=== PATIENT | male | born 1955 | race Caucasian/White ===

== ENCOUNTER → 2024-06-05 | Outpatient (BNVA) | payer OTHER, SELFPAY | END | disposition home or self-care (01) | PROVIDERS: PCP Family Medicine; Referring Provider Family Medicine; Visit Provider Urology | DX: N40.1 Benign prostatic hyperplasia with lower urinary tract symptoms (principal); N13.8 Other obstructive and reflux uropathy; N32.3 Diverticulum of bladder; C67.9 Malignant neoplasm of bladder, unspecified; E11.9 Type 2 diabetes mellitus without complications; I10 Essential (primary) hypertension; J44.9 Chronic obstructive pulmonary disease, unspecified; Z87.891 Personal history of nicotine dependence; I48.91 Unspecified atrial fibrillation; I25.10 Atherosclerotic heart disease of native coronary artery without angina pectoris; E78.00 Pure hypercholesterolemia, unspecified; Z86.718 Personal history of other venous thrombosis and embolism; K21.9 Gastro-esophageal reflux disease without esophagitis | CPT/HCPCS: 81003; 99212; G0463 ==

== ENCOUNTER 2024-10-08 17:40 | Inpatient (IN) | payer OTHER, MEDICARE, SELFPAY ==
[2024-10-08] VITALS (9 sets, daily range): BP systolic 115–153; BP diastolic 82–114; PULSE 92–120; RESP 15–91; TEMP 36.8–37.2; O2SAT 91–96; BMI 28.8
--- NOTE | 2024-10-08 18:17 | XR_ITS ---
Examination: CT brain head without contrast. 2-D sagittal coronal reconstructions Date and time of exam:October 08, 2024 1858 hrs. Indications: Onset altered mental status today CTDI: vol (mGy):55.5 DLP: (mGycm):1227 4 Technique: Multiple CT axial sections of the brain have been obtained, 5 mm slice thickness. Contrast has not been administered. 2-D sagittal, coronal reconstructions have been obtained Low dose protocols were performed. One or more of the following dose reduction techniques were used; automated exposure control, adjustment of the mA and/or KV according to patient size, use of iterative reconstruction technique. Findings: No significant ventricular enlargement. Intra-axial or extra-axial hemorrhage density is not seen. No mass effect or midline shift Basal cisterns are not remarkable. Fourth ventricle is midline. Cranial vault intact. Impression: Negative for acute hemorrhage, mass effect or midline shift Advise clinical correlation follow-up accordingly
--- NOTE | 2024-10-08 18:19 | PD.EDADULT ---
ED General RME/HPI General Chief complaint: Altered Mental Status Stated complaint: ALERTED Time Seen by Provider: 10/08/24 18:06 Arrival date/time: 10/08/24 17:40 RME / HPI RME / HPI narrative: Patient is 68 years old male with past medical history of diabetes, hypertension, depression, BPH, COPD presented to the ED after he was found down at home. Per EMS patient lives alone and last time was seen normal more than 1 day ago. Patient cannot recall when he fell and appears altered. He denies any chest pain, shortness of breath, abdominal pain, fever, chills, nausea and vomiting. Daughter was contacted over the phone reporting patient's last well-known 1 to 2 days ago when she spoke over the phone with him, patient reported not feeling well several days prior to the event. She also reported he is drinking alcohol heavily. Related Data Home Medications ?Medication ?Instructions ?Recorded ?Confirmed finasteride 5 mg tablet (Proscar) 5 mg PO QDAY #0 tabs 11/01/16 06/05/24 albuterol sulfate 90 mcg/actuation 1 puff inhalation DAILY PRN 07/05/19 06/05/24 aerosol inhaler (ProAir HFA) Wheezing sertraline 100 mg tablet 200 mg PO QDAY 07/05/19 06/05/24 fluticasone fur. 100 mcg-umeclid 1 inh inhalation QDAY 12/11/19 06/05/24 62.5 mcg-vilant 25 mcg inhalat.powder (Trelegy Ellipta) aripiprazole 5 mg tablet (Abilify) 5 mg PO HS 08/09/23 06/05/24 benzonatate 200 mg capsule 200 mg PO Q8HR 08/09/23 06/05/24 fenofibrate micronized 200 mg 200 mg PO DAILY 08/09/23 06/05/24 capsule fluticasone propionate 50 1 spray intranasal DAILY 08/09/23 06/05/24 mcg/actuation nasal spray,suspension glipizide 5 mg tablet 5 mg PO QAM 08/09/23 06/05/24 hydroxyzine HCl 25 mg tablet 25 mg PO HS PRN Anxiety 08/09/23 06/05/24 loratadine 10 mg tablet 10 mg PO DAILY 08/09/23 06/05/24 tamsulosin 0.4 mg capsule (Flomax) 0.8 mg PO HS #0 caps 06/05/24 06/05/24 Allergies Allergy/AdvReac Type Severity Reaction Status Date / Time codeine Allergy Severe vomiting Verified 06/05/24 14:13 strawberry Allergy Severe Hives Verified 06/05/24 14:13 Bee Stings Allergy Severe ANAPHYLACTIC Uncoded 06/05/24 14:13 SHOCK Review of Systems Review of Systems Systems Reviewed: All systems reviewed, normal except as documented ED Exam Narrative Physical exam: Gen: Well-developed male appears malnourished. HEENT: NCAT, PERRLA, EOMI, MMM, anicteric conjunctivae, poor dentition. CVS: normal S1 and S2. RRR. No M/R/G. Resp: CTA B/L. No rhonchi, rales, crackles or wheezing. Abd: soft, non-tender, non-distended. BS+ in all 4 quadrants. MSK: Good ROM in BUE & BLE. No edema or rash. Right lower rib appears to be detached and located in RUQ with surrounding bruse. Neuro: CN II-XII grossly intact. Strength 5/5 in RUE & BLE. Strength 3/5 LUE, unable to raise arm. AAO x0. Course Course Course Narrative: 193: sepsis alert, NS 1L, ceftriaxone 2g, cultures taken. CT head showed no ICH. 1999: POCUS showed right lower rib dislocated, no diaphragm injury, no abdominal content herniation to the chest, minimal free fluid in abdomen. LA 4.2, troponin I 0.261, CK 8267, AST 163, ALT 64, t.bili 1.4. NS 1L given. 2029: negative for UTI. Spoke with patient daughter over the phone, she confirms last well-known 1 to 2 days ago, was not feeling well several days prior. CODE STATUS is full code. 2229: troponin I 0.255, CK 8113, LA 1.9. 2299: held another 1L of NS, patient sounds slightly congested, vitals are stable. 0130: decision to admit, pending read on CT C/A/P w/ contrast. Quality Measures Current suspected stage: sepsis Possible source: unknown Blood cultures ordered: yes Antibiotic ordered: Yes Pertinent labs: 10/08/24 10/08/24 19:53 22:59 Lactic Acid 4.2 H* mMol/L 1.9 mMol/L (0.4-2.0) (0.4-2.0) Procalcitonin 0.63 H ng/ml (0.0-0.49) sepsis Orders Category Date Time Status Bedside COVID-19 Antigen Test NOW Care 10/08/24 18:57 Active Bedside Influenza A&B Antigen Test NOW Care 10/08/24 18:57 Completed COVID-19 Screening Questionnaire NOW Care 10/09/24 01:[address] Screening NOW Care 10/08/24 18:[address] Screening NOW Care 10/08/24 20:07 Completed [employer] [facility] now Care 10/08/24 19:31 Active Continuous Pulse Oximetry NOW Care 10/08/24 19:31 Completed Decision to Admit X1 Care 10/09/24 01:07 Active EKG (ED ONLY) *Do not use* NOW Care 10/08/24 18:50 Completed [place] [Urinary Catheter] QS Care 10/08/24 18:32 Active Head of Bed Elevation NOW Care 10/08/24 18:23 Active IV [Insert IV] NOW Care 10/08/24 18:24 Active Ice Chips NEEDED Care 10/08/24 18:23 Active NPO NOW Care 10/08/24 18:23 Active Neuro Check Q2H Care 10/08/24 18:55 Active Nurse Swallow Screen X1 Care 10/08/24 18:42 Active Seizure precautions NOW Care 10/08/24 18:30 Active Strict Intake and Output Routine Care 10/08/24 19:31 Ordered Diet NPO (NOW) Diet 10/08/24 18:[address] angio carotid w head w Stat Exams 10/08/24 18:[address] chest abdomen pelvis w Stat Exams 10/08/24 20:[address] head/brain wo con Stat Exams 10/08/24 18:17 Completed EKG (ED Only) Stat Exams 10/08/24 18:50 Draft XR chest 1V SEPSIS PROTOCOL Stat Exams 10/08/24 19:53 Completed XR shoulder LT 1V Stat Exams 10/08/24 18:29 Completed ABG [Arterial Blood Gas] Stat Lab 10/08/24 20:06 Completed BNP [B-Type Natriuretic Peptide] Stat Lab 10/08/24 18:54 Completed Blood Culture (Lab) Stat Lab 10/08/24 19:53 Received CBC Stat Lab 10/08/24 18:54 Completed CBC Stat Lab 10/08/24 22:35 Completed CMP [Comprehensive Metabolic Panel] Stat Lab 10/08/24 18:54 Completed Creatine Kinase Stat Lab 10/08/24 18:54 Completed Creatine Kinase Stat Lab 10/08/24 22:35 Completed D-Dimer Stat Lab 10/08/24 18:54 Completed Drug Screen,Urine Stat Lab 10/08/24 19:47 Completed INR [Prothrombin Time with INR] Stat Lab 10/08/24 18:54 Completed Lactate (Lactic Acid) Stat Lab 10/08/24 19:53 Completed Lactic Acid [Lactate (Lactic Acid)] Stat Lab 10/08/24 22:59 Completed Magnesium Stat Lab 10/08/24 18:54 Completed PTT [Partial Thromboplastin Time] Stat Lab 10/08/24 18:54 Completed Phosphorous Stat Lab 10/08/24 18:54 Completed Procalcitonin Stat Lab 10/08/24 19:53 Completed Troponin I Stat Lab 10/08/24 18:54 Completed Troponin I Stat Lab 10/08/24 22:35 Completed Urinalysis Stat Lab 10/08/24 19:47 Completed Urine Culture Stat Lab 10/08/24 19:47 Received Aspirin Med 10/08/24 18:24 Discontinued 325 mg PO X1 ONE Aspirin Supp Med 10/08/24 19:26 Discontinued 300 mg PA X1 ONE Sodium Chloride 0.9% 1000 ml [Ns] 1,000 ml Med 10/08/24 19:27 Discontinued IV 999 mls/hr Sodium Chloride 0.9% 1000 ml [Ns] 1,000 ml Med 10/08/24 20:08 Discontinued IV 999 mls/hr Sodium Chloride 0.9% 500 ml [Ns] 500 ml Med 10/08/24 22:23 Discontinued IV 999 mls/hr cefTRIAXone [Rocephin] 2 gm Med 10/08/24 19:31 Discontinued SODIUM CHLORIDE 0.9% (Popper) [Ns 0.9% (P)] 50 ml IV X1 Oxygen Delivery NOW RT 10/08/24 18:24 Active Vital Signs Vital signs: Vital Signs Pulse Rate 111 H 10/08/24 18:40 Respiratory Rate 16 10/08/24 18:40 Procedures -ED EKG Interpretation #1: Date of EK10/08/24 Time of EK:41 Rate: 104 Interpretation: Reviewed by me EKG Impression: Bundle branch block (right) and Sinus tachycardia Additional EKG comment: Dr. Donovan: EKG dated 10/08/24 at 1941 hours. My interpretation: sinus tachycardia, rate 104, right bundle branch block, old UT inferior, QTc 441. MDM Patient data External records reviewed:: [facility] previous records and EMS form Clinical information provided by:: patient and EMS Social determinants that could affect healthcare access:: none Patient has the following chronic illnesses:: diabetes, hypertension, depression, BPH, COPD How is presenting disease/condition affected by chronic disease/condition?: uneffected by Evaluation data The following diagnostics were reviewed and interpreted by me:: lab results, radiology exam(s) and EKG tracing(s) Lab and/or radiology exams considered but not ordered:: Brain MRI Interpretation Summary: Sepsis, lactic acidosis, prerenal THANG, rhabdomyolysis, severe dehydration, NSTEMI likely type II Medications Medications considered but not ordered:: statin, aspirin Medication administrations:: Medication Administration History Discontinued Medications Aspirin (Aspirin 325 Mg Tablet) 325 mg PO X1 ONE Stop: 10/08/24 18:25 Last Admin: 10/08/24 19:53 Dose: Not Given Documented By: EE Non-Admin Reason: Cancelled by Provider Aspirin (Aspirin 300 Mg Supp) 300 mg PA X1 ONE Stop: 10/08/24 19:27 Last Admin: 10/08/24 19:53 Dose: Not Given Documented By: EE Non-Admin Reason: Cancelled by Provider Sodium Chloride (Ns) 1,000 mls @ 999 mls/hr IV .Q1H1M ONE Stop: 10/08/24 20:27 Last Infusion: 10/08/24 21:00 Dose: Infused Documented By: Admin: 10/08/24 19:55 Dose: 999 mls/hr Documented By: EE Ceftriaxone Sodium 2 gm/ (Sodium Chloride) 50 mls @ 100 mls/hr IV X1 ONE Stop: 10/08/24 20:00 Last Infusion: 10/08/24 20:35 Dose: Infused Documented By: Admin: 10/08/24 19:55 Dose: 100 mls/hr Documented By: EE Sodium Chloride (Ns) 1,000 mls @ 999 mls/hr IV .Q1H1M ONE Stop: 10/08/24 21:08 Last Infusion: 10/08/24 22:00 Dose: Infused Documented By: Admin: 10/08/24 20:23 Dose: 999 mls/hr Documented By: LYLE Sodium Chloride (Ns) 500 mls @ 999 mls/hr IV .Q31M ONE Stop: 10/08/24 22:53 Last Admin: 10/08/24 23:00 Dose: Not Given Documented By: LYLE Non-Admin Reason: Cancelled by Provider as above Consultations Consultation(s) initiated? (list below): No Diagnosis Differential Diagnosis ED Complaint MDM: trauma, sepsis, rhabdomyolysis, alcohol withdrawal(seizure?) Most likely diagnosis given after review of the tests above:: Rhabdomyolysis Admission Indicated Admission indicated?: indicated Explain why admission is indicated or not indicated:: Patient has rhabdomyolysis and prerenal THANG, NSTEMI likely type II, on presentation was septic, no source identified as of now. Needs to be worked up for possible infection and reason of fall. Admission Request Was there a request for admission?: Yes Admission Attestation Admission request attestation: Discussed case with Dr. Roblero from Hospitalist service regarding admission. Discussed patients ED course, exam findings, labs, and radiology results. The Hospitalist agrees to accept the patient for admission. Disposition Plan Disposition Plan: Admit Medical Decision Making MDM Narrative MDM Narrative: 2029. Daughter Lisa called me to report that she spoke to her father 2 and half days ago and reported that he was not feeling good for a few days. The patient's friend is at the bedside and stated 2 days ago he was intoxicated and that the last time he saw him. He reports the patient is a very heavy drinker. Patient outside of the window for tPA Last known normal 1-1/2 to 2 days ago. ---: Sepsis alert called ---: Sent to CT ---: Noted patient has contusion on right abdomen. Bedside ultrasound does not show free fluid --: Sepsis alert reeval Lisa [phone] (cell) Dami [phone](cell) Differential Diagnosis Differential Diagnosis: trauma, sepsis, rhabdomyolysis, alcohol withdrawal(seizure?) Lab Data 10/08/24 22:35 10/08/24 18:54 Labs: Lab Results 10/08/24 10/08/24 10/08/24 Range/Units 18:54 19:47 19:53 WBC 22.8 H (3.8-10.6) Thou/mm3 RBC 6.09 H (4.50-5.90) Miln/mm3 Hgb 19.5 H* (13.5-16.0) g/dL Hct 58.2 H (41.0-53.0) % MCV 96 (80-100) fL MCH 32.0 (25.0-35.0) pg MCHC 33.5 (31.0-37.0) g/dl RDW Std Deviation 46.9 H (35.1-43.9) fL Plt Count 191 (140-440) Thou/mm3 Neut % (Auto) 84 H (37-80) % Lymph % (Auto) 6 L (10-50) % [place] % (Auto) 9 (0-12) % Eos % (Auto) 0 (0-10) % Baso % (Auto) 0 (0-2.5) % Neut # (Auto) 19.1 H (1.8-7.7) Thou/mm3 Lymph # (Auto) 1.4 (1.0-4.8) Thou/mm3 [place] # (Auto) 2.1 H (0.0-0.8) Thou/mm3 Eos # (Auto) 0.0 (0.0-0.5) Thou/mm3 Baso # (Auto) 0.1 (0.0-0.2) Thou/mm3 Immature Gran # (Auto) 0.24 H (0.00-0.00) Thou/mm3 Absolute Nucleated RBC 0.00 (0.00-0.00) Thou/mm3 Immature Gran % 1 H (0-0) % Nucleated RBC % 0 (0) /100 WBC PT 11.4 (9.0-12.2) Seconds INR 1.0 (0.9-1.3) APTT 23.9 (22.0-36.0) Seconds D-Dimer 1160 H (<600) ng/mL Puncture Site ABG pH (7.35-7.45) ABG pCO2 (32.0-48.0) mmHg ABG pO2 (83-108) mmHg ABG HCO3 (20-26) mEq/L ABG O2 Saturation (91-98) % ABG Base Excess (-3-3) FiO2 % Sodium 139 (136-145) mMol/L Potassium 4.9 (3.4-5.1) mMol/L Chloride 104 (98-107) mMol/L Carbon Dioxide 23.4 (20.0-31.0) mMol/L Anion Gap 12 (7-16) BUN 47 H (9-23) mg/dL Creatinine 1.6 H (0.6-1.3) mg/dL Estim Creat Clear Calc 52.5 L (>60) mL/min eGFR 46 L (60 - ) See Note BUN/Creatinine Ratio 29 H (12-20) Ratio Glucose 227 H (74-106) mg/dL Calculated Osmolality 296 H (275-295) Lactic Acid 4.2 H* (0.4-2.0) mMol/L Calcium 9.7 (8.3-10.6) mg/dL Corrected Calcium 9.7 (8.5-10.1) mg/dL Phosphorus 5.0 (2.4-5.1) mg/dL Magnesium 2.4 (1.6-2.6) mg/dL Total Bilirubin 1.4 H (0.3-1.2) mg/dL AST 163 H (0-34) U/L ALT 64 H (10-49) U/L Alkaline Phosphatase 72 (46-116) U/L Total Creatine Kinase 8267 H (34-171) U/L Troponin I 0.261 H* (0.0-0.045) ng/mL B-Natriuretic Peptide 40 (0-100) pg/mL Total Protein 7.2 (5.7-8.2) gm/dL Albumin 4.2 (3.4-4.8) gm/dL Globulin 3.0 (2.3-3.5) gm/dL Albumin/Globulin Ratio 1.4 (1.2-2.2) Procalcitonin 0.63 H (0.0-0.49) ng/ml Ur Collection Type Clean Catch Urine Color Lt-Yellow (Lt Yel-Yel) Urine Clarity Clear (Clear/Hazy) Urine pH 6.0 (5.0-7.0) Ur Specific [place] 1.015 (1.001-1.035) Urine Protein 3+ A (Neg - Trace) Urine Glucose (UA) 1+ A (Negative) Urine Ketones Trace (Negative) Urine Blood 3+ A (Negative) Urine Nitrite Negative (Negative) Urine Bilirubin Negative (Negative) Urine Urobilinogen (Auto) Negative (0.0-1.0) mg/dL Ur Leukocyte Esterase Negative (Negative) Urine RBC 4 H (0-3) /hpf Urine WBC < 1 (0-5) /hpf Ur Squamous Epith Cells 0 (0-5) /hpf Urine Bacteria Rare (None) Urine Opiates Screen Negative (Negative) Urine Fentanyl Screen Negative (Negative) Ur Barbiturates Screen Negative (Negative) U Amphetamin/Meth Scrn Negative (Negative) U Benzodiazepines Scrn Negative (Negative) U Cocaine Metab Screen Negative (Negative) U Marijuana (THC) Screen Negative (Negative) 10/08/24 10/08/24 10/08/24 Range/Units 20:06 22:35 22:59 WBC 27.1 H (3.8-10.6) Thou/mm3 RBC 5.78 (4.50-5.90) Miln/mm3 Hgb 18.5 H* (13.5-16.0) g/dL Hct 55.2 H (41.0-53.0) % MCV 96 (80-100) fL MCH 32.0 (25.0-35.0) pg MCHC 33.5 (31.0-37.0) g/dl RDW Std Deviation 47.4 H (35.1-43.9) fL Plt Count 167 (140-440) Thou/mm3 Neut % (Auto) 81 H (37-80) % Lymph % (Auto) 6 L (10-50) % [place] % (Auto) 12 (0-12) % Eos % (Auto) 0 (0-10) % Baso % (Auto) 0 (0-2.5) % Neut # (Auto) 21.9 H (1.8-7.7) Thou/mm3 Lymph # (Auto) 1.7 (1.0-4.8) Thou/mm3 [place] # (Auto) 3.2 H (0.0-0.8) Thou/mm3 Eos # (Auto) 0.0 (0.0-0.5) Thou/mm3 Baso # (Auto) 0.1 (0.0-0.2) Thou/mm3 Immature Gran # (Auto) 0.31 H (0.00-0.00) Thou/mm3 Absolute Nucleated RBC 0.00 (0.00-0.00) Thou/mm3 Immature Gran % 1 H (0-0) % Nucleated RBC % 0 (0) /100 WBC PT (9.0-12.2) Seconds INR (0.9-1.3) APTT (22.0-36.0) Seconds D-Dimer (<600) ng/mL Puncture Site Left Radial ABG pH 7.36 (7.35-7.45) ABG pCO2 43 (32.0-48.0) mmHg ABG pO2 70 L (83-108) mmHg ABG HCO3 24 (20-26) mEq/L ABG O2 Saturation 94 (91-98) % ABG Base Excess -1 (-3-3) FiO2 28 % Sodium (136-145) mMol/L Potassium (3.4-5.1) mMol/L Chloride (98-107) mMol/L Carbon Dioxide (20.0-31.0) mMol/L Anion Gap (7-16) BUN (9-23) mg/dL Creatinine (0.6-1.3) mg/dL Estim Creat Clear Calc (>60) mL/min eGFR (60 - ) See Note BUN/Creatinine Ratio (12-20) Ratio Glucose (74-106) mg/dL Calculated Osmolality (275-295) Lactic Acid 1.9 (0.4-2.0) mMol/L Calcium (8.3-10.6) mg/dL Corrected Calcium (8.5-10.1) mg/dL Phosphorus (2.4-5.1) mg/dL Magnesium (1.6-2.6) mg/dL Total Bilirubin (0.3-1.2) mg/dL AST (0-34) U/L ALT (10-49) U/L Alkaline Phosphatase (46-116) U/L Total Creatine Kinase 8113 H D (34-171) U/L Troponin I 0.255 H* (0.0-0.045) ng/mL B-Natriuretic Peptide (0-100) pg/mL Total Protein (5.7-8.2) gm/dL Albumin (3.4-4.8) gm/dL Globulin (2.3-3.5) gm/dL Albumin/Globulin Ratio (1.2-2.2) Procalcitonin (0.0-0.49) ng/ml Ur Collection Type Urine Color (Lt Yel-Yel) Urine Clarity (Clear/Hazy) Urine pH (5.0-7.0) Ur Specific [place] (1.001-1.035) Urine Protein (Neg - Trace) Urine Glucose (UA) (Negative) Urine Ketones (Negative) Urine Blood (Negative) Urine Nitrite (Negative) Urine Bilirubin (Negative) Urine Urobilinogen (Auto) (0.0-1.0) mg/dL Ur Leukocyte Esterase (Negative) Urine RBC (0-3) /hpf Urine WBC (0-5) /hpf Ur Squamous Epith Cells (0-5) /hpf Urine Bacteria (None) Urine Opiates Screen (Negative) Urine Fentanyl Screen (Negative) Ur Barbiturates Screen (Negative) U Amphetamin/Meth Scrn (Negative) U Benzodiazepines Scrn (Negative) U Cocaine Metab Screen (Negative) U Marijuana (THC) Screen (Negative) Discharge Plan Plan Patient Disposition: Admit Acute Care w/in Hospital Prescriptions/Referrals Prescriptions/Med Rec: No Action finasteride [Proscar] 5 MG tablet 5 mg PO QDAY Qty: 0 tamsulosin [Flomax] 0.4 mg capsule 0.8 mg PO HS Qty: 0 Trelegy Ellipta 100-62.5-25 mcg Blister With Device 1 inh INHALATION QDAY sertraline 100 mg Tablet 200 mg PO QDAY albuterol sulfate [ProAir HFA] 90 mcg/actuation Hfa Aerosol Inhaler 1 puff inhalation DAILY PRN (Reason: Wheezing) benzonatate 200 mg capsule 200 mg PO Q8HR Patient Comments: TAKE 1 CAPSULE BY MOUTH EVERY 8 HOURS NEEDED FOR PERSISTENT COUGHING loratadine 10 mg tablet 10 mg PO DAILY Patient Comments: TAKE 1 TABLET BY MOUTH ONCE DAILY NEEDED FOR ALLERGIES aripiprazole [Abilify] 5 mg Tablet 5 mg PO HS fenofibrate micronized 200 mg capsule 200 mg PO DAILY Patient Comments: TAKE 1 CAPSULE BY MOUTH ONCE DAILY FOR HIGH TRIGLYCERIDES hydroxyzine HCl 25 mg tablet 25 mg PO HS PRN (Reason: Anxiety) Patient Comments: TAKE 1 TABLET BY MOUTH NIGHTLY NEEDED FOR ANXIETY FOR INSOMNIA fluticasone propionate 50 mcg/actuation spray,suspension 1 spray INTRANASAL DAILY Patient Comments: USE 1 SPRAY(S) IN EACH NOSTRIL 1-2 TIMES PER DAY FOR PERSISTENT ALLERGIES glipizide 5 mg tablet 5 mg PO QAM Patient Comments: TAKE 1 TABLET BY MOUTH TWICE DAILY WITH MEALS FOR DIABETES Referrals: No Primary/Family,Physician [Primary Care Provider] - In 1 week Problem List Clinical Impression: Rhabdomyolysis, Sepsis, Ground-level fall, THANG (acute kidney injury) Patient/Caregiver Discharge Instructions Print Language: Ni[place]an Stand Alone Forms: Sylvia Award Info., Patient Portal Info Letter MD Attestation MD Attestation I, Dr. Donovan, have reviewed the history, exam, and assessment of the patient. I have evaluated the patient independently and agree with the plan of care documented by resident Bill Kruse. All diagnostic studies were reviewed and discussed. I confirm the diagnosis as documented by the resident. I was present during the Medical Decision Making for this patient. The patient's plan of care was created between myself and the Resident and consistent with our discussion of the patient's case.
--- NOTE | 2024-10-08 18:29 | XR_ITS ---
Examination: AP left shoulder single view Technique one AP internal rotation left shoulder single view Exam date and time: October 08, 20241950 hrs. Indications: Left shoulder pain today. Findings: No shoulder fracture or dislocation Small old bone density at the AC joint No calcific tendinitis Mild narrowing glenohumeral joint Impression: Mild narrowing glenohumeral joint
--- NOTE | 2024-10-08 18:50 | EKG_ITS ---
[facility] Test Date: 2024-10-08 Pat Name: JEANETTE NAIR Department: Room: - Gender: Male [employer]: : 1955 Requested By: Bill Kruse Order Number: [id number] Reading MD: Bill Kruse Measurements Intervals Vaughn Rate: 104 P: 79 SD: 172 QRS: 269 QRSD: 149 T: 23 QT: 381 QTc: 502 Interpretive Statements SINUS TACHYCARDIA POSSIBLE LEFT ATRIAL ENLARGEMENT [-0.1mV P-WAVE IN V1/V2] RIGHT AXIS DEVIATION [QRS AXIS > 100] RIGHT BUNDLE BRANCH BLOCK [120+ ms QRS DURATION, UPRIGHT V1, 40+ ms S IN I/aVL/V4/V5/V6] INFERIOR MYOCARDIAL INFARCTION , PROBABLY OLD [40+ ms Q WAVE AND/OR ST/T ABNORMALITY IN II/aVF] Compared to ECG 08/09/2023 13:01:01 Right-axis deviation now present Right bundle-branch block now present Myocardial infarct finding now present Sinus rhythm no longer present /store/S0/[id number]
--- NOTE | 2024-10-08 18:50 | XR_ITS ---
Examination: CTA carotids with intravenous contrast CTA brain, head with intravenous contrast. 2-D sagittal, coronal reconstructions. 3-D reconstructions. Exam date and time: October 14, 2024 1914 hrs. Indications: Altered mental status today CTDI: vol (mGy) 22.7 DLP: (mGycm) 182 Technique: Multiple CTA axial brain, head carotid images post intravenous contrast injection 75 cc, [id number]. 2-D sagittal, coronal reconstructions. 3-D reconstructions, 3-D post processing including vascular maximum intensity projection images. Low dose protocols were performed. One or more of the following dose reduction techniques were used; automated exposure control, adjustment of the mA and/or KV according to patient size, use of iterative reconstruction technique. Findings: No significant neck common carotid carotid bifurcation or internal carotid artery stenoses No significant vertebral artery stenoses No cerebral large vessel arterial occlusions or thrombus Impression: No significant neck arterial stenoses No cerebral large vessel arterial occlusions thrombus
--- NOTE | 2024-10-08 18:54 | PC.NURSE ---
PER NO STROKE ALERT
--- NOTE | 2024-10-08 19:07 | PC.NURSE ---
called daughter ian to get info for ct screen, advised that pt was brought in for AMS AND IS CURRENTLY IN CT.
--- NOTE | 2024-10-08 19:08 | PC.NURSE ---
PT BIB BY [facility] FOR AMS PT WAS MISSING FOR 1 1/2 DAYS A FRIEND WENT TO HOME TO CHECK ON HIM AND HE WAS FOUND DOWN ON THE GROUND IN [place]. EMS STATED SOME L ARM DRIFT BUT NO FACIAL DROOP.
--- NOTE | 2024-10-08 19:10 | PC.NURSE ---
WHEN ASSESSING PT FOR INTAKE HE WAS ALTERED NOT WANTING TO COOPERATE HE WAS AAOX1. HE NOT WANTING TO EXTEND LEFT ARM. HE KEPS IT CLOSE TO BODY UNABLE TO FOLLOW COMMANDS WHEN I TOLD HIM TO RELAX THE LEFT ARM HE WOULD RELAX THE RIGHT OR STATE I AM YET IT WAS STILL CLENCHED TIGHT. PT SAID HE WAS AT HIS HOME. HE WAS NOT SURE WHY HE WAS HERE. WHEN LAB TRIED TO DRAW BLOOD HE GRABBED NEEDLE WELL.
[2024-10-08 19:32] LABS: Basophils # (Auto) 0.1 Thou/mm3 (0.0-0.2); Basophils % (Auto) 0 % (0-2.5); Eosinophils % (Auto) 0 % (0-10); Hematocrit 58.2 % (41.0-53.0); Hemoglobin 19.5 g/dL (13.5-16.0); Immature Granulocytes % (Auto) 1 % (0-0); Immature Granulocytes Auto 0.24 Thou/mm3 (0.00-0.00); Lymphocytes # (Auto) 1.4 Thou/mm3 (1.0-4.8); Lymphocytes % (Auto) 6 % (10-50); Mean Corpuscular HGB Conc 33.5 g/dl (31.0-37.0); Mean Corpuscular Volume 96 fL (80-100); Monocytes # (Auto) 2.1 Thou/mm3 (0.0-0.8); Monocytes % (Auto) 9 % (0-12); Neutrophils # (Auto) 19.1 Thou/mm3 (1.8-7.7); Neutrophils % (Auto) 84 % (37-80); Nucleated Red Blood Cell % 0 /100 WBC (0); Platelet Count 191 Thou/mm3 (140-440); RDW Standard Deviation 46.9 fL (35.1-43.9); Red Blood Count 6.09 Miln/mm3 (4.50-5.90)
[2024-10-08 19:40] LABS: B-Type Natriuretic Peptide 40 pg/mL (0-100); White Blood Count 22.8 Thou/mm3 (3.8-10.6)
[2024-10-08 19:45] LABS: Partial Thromboplastin Time 23.9 Seconds (22.0-36.0); Prothrombin Time 11.4 Seconds (9.0-12.2)
--- NOTE | 2024-10-08 19:53 | XR_ITS ---
Examination: AP chest single view Technique one AP portable semiupright chest single view Exam date and time: October 08, 2024 1950 hrs. Comparison May 17, 2023 Indications: Sepsis protocol Findings: Accentuation basilar bronchovascular markings No sedrick lobar pneumonia Significant elevation left hemidiaphragm Mild prominence of ventricle Impression: Basilar bronchitis pattern
[2024-10-08 19:55] LABS: Alanine Aminotransferase 64 U/L (10-49); Albumin, Serum 4.2 gm/dL (3.4-4.8); Albumin/Globulin Ratio 1.4 (1.2-2.2); Alkaline Phosphatase 72 U/L (46-116); Anion Gap 12 (7-16); Aspartate Amino Transferase 163 U/L (0-34); BUN/Creatinine Ratio 29 Ratio (12-20); Bilirubin,Total 1.4 mg/dL (0.3-1.2); Blood Urea Nitrogen 47 mg/dL (9-23); Calcium 9.7 mg/dL (8.3-10.6); Calcium (Corrected) 9.7 mg/dL (8.5-10.1); Carbon Dioxide 23.4 mMol/L (20.0-31.0); Chloride 104 mMol/L (98-107); Creatine Kinase 8267 U/L (34-171); Creatinine (Component) 1.6 mg/dL (0.6-1.3); Estimated Creatinine Clearance 52.5 mL/min (>60); Glucose 227 mg/dL (74-106); Magnesium 2.4 mg/dL (1.6-2.6); Osmolality,Calculated 296 (275-295); Potassium 4.9 mMol/L (3.4-5.1); Sodium 139 mMol/L (136-145); Total Protein 7.2 gm/dL (5.7-8.2); eGFR 46 See Note
[2024-10-08] MEDS: SODIUM CHLORIDE 0.9% 1000 ML 1,000 ML 999 ML IV ×2 (19:55→20:23)
[2024-10-08] MEDS: cefTRIAXone 2 GM in SODIUM CHLORIDE 0.9% (Popper) 50 ML IV (19:55)
--- NOTE | 2024-10-08 19:57 | PRELIM_ITS ---
CT scan of the head without intravenous contrast (axial sections with sagittal and coronal reformats) October 08, 2024 1858 hours Clinical history: cva work up Comparison: No prior study is available for comparison. Findings: There is no evidence of intracranial hemorrhage, mass effect or midline shift. There are periventricular white matter hypodensities, compatible with chronic small vessel ischemia. There is mild volume loss. The calvarium is unremarkable. The mastoid air cells and the visualized paranasal sinuses are clear. Impression: No evidence of intracranial hemorrhage, mass effect or midline shift. Periventricular chronic small vessel ischemia and volume loss. Report Electronically Signed By: Elisa Park 10/08/2024 7:56:33 PM [EST]
[2024-10-08 19:58] LABS: Collection Type, Urine Clean Catch; Squamous Epithelial Cell,Urine 0 /hpf (0-5)
--- NOTE | 2024-10-08 19:59 | PC.NURSE ---
ASSUME CARE OF PT AT THIS TIME. PT PRESENTS TO BE ALTERED, AND UNCOOPERATIVE. PT PULLING ON MONITOR LINES, AND IV TUBING. PT YELLING AND SCREAMING OUCH, OUCH , PT APPEARS TO BE A/O TO SELF AND PLACE. PER FRIEND AT BEDSIDE STATES WAS LAST SEEN TUESDAY BY HIM AND STATES PT WAS HEAVILY INTOXICATED AND STATES PT IS A HEAVY DRINKER. PT FRIEND [facility] TUESDAY WAS THE LAST TIME PT WAS SEEN BY HIM. PER DAY SHIFT PUSHPA GONZALEZ. PT WAS FOUND TO BE COVER IN FECES AND URINE AFTER SUFFER A FALL (UNKNOWN WHEN PT FELL). PT PRESENTS WITH DEFECTED AND URINATED. PT BUTTOCK IS REDDENED WITH MOISTURIZED DERMATITIS. PT HAS BRUISE TO RIGHT RIB CAGE AREA. MD SHARP AT BEDSIDE. PT CARE ONGOING
[2024-10-08 20:01] LABS: Troponin I 0.261 ng/mL (0.0-0.045)
[2024-10-08 20:04] LABS: Bacteria,Urine Rare; Bilirubin,Urine Negative (Negative); Blood,Urine 3+ (Negative); Clarity,Urine Clear (Clear/Hazy); Color,Urine Lt-Yellow (Lt Yel-Yel); Glucose, Urine 1+ (Negative); Ketones,Urine Trace (Negative); Leukocyte Esterase,Urine Negative (Negative); Nitrite,Urine Negative (Negative); Protein,Urine 3+ (Neg - Trace); RBC,Urine 4 /hpf (0-3); Specific Gravity,Urine 1.015 (1.001-1.035); Urobilinogen,Urine Negative mg/dL (0.0-1.0); WBC,Urine < 1 /hpf (0-5)
[2024-10-08 20:07] LABS: Lactate (Lactic Acid) 4.2 mMol/L (0.4-2.0)
--- NOTE | 2024-10-08 20:07 | XR_ITS ---
Examination: CT chest with intravenous contrast CT abdomen with intravenous contrast CT pelvis with intravenous contrast 2-D coronal and sagittal reconstructions Time of exam: October 01, 2024 0830 hrs. Indications: Patient fell today with injury to the chest and abdomen, chest pain abdomen pain CTDI: vol (mGy) : 10.5 DLP: (mGycm): 884 Technique: Multiple axial images of the chest, abdomen and pelvis with intravenous contrast, 3.0 mm slice thickness. Images obtained post intravenous injection Isovue 370 60 cc. 2-D sagittal and coronal reconstructions. Low dose protocols were performed. One or more of the following dose reduction techniques were used; automated exposure control, adjustment of the mA and/or KV according to patient size, use of iterative reconstruction technique. Findings: Procedure pulmonary arteries intact No hemopericardium No pneumothorax pulmonary contusion or hemothorax No abdominal parenchymal laceration Abdominal aorta intact No free blood in the abdomen or pelvis Fatty infiltration throughout the liver Fat-containing left adrenal mass 34 mm Cholelithiasis No hydronephrosis Abdominal aortic calcification Tiny fat-containing umbilical hernia Urinary bladder contracted around a Skelton catheter Osseous structures are intact Impression: There is iterative pulmonary arteries intact No pneumothorax or pulmonary contusion No abdominal parenchymal laceration Abdominal aorta intact, no free blood in the abdomen Fat-containing left adrenal mass, 34 mm
[2024-10-08 20:09] LABS: Base Excess -1 (-3-3); HCO3 24 mEq/L (20-26); Inspired Oxygen, FIO2 28 %; O2 Saturation 94 % (91-98); PCO2 43 mmHg (32.0-48.0); PO2 70 mmHg (83-108); pH, Arterial 7.36 (7.35-7.45)
[2024-10-08 20:09] LABS: Amphetamine/Methamp Scrn,U Negative (Negative); Barbiturate Screen,Urine Negative (Negative); Benzodiazepines Screen,Urine Negative (Negative); Benzoylecgonine Screen, Ur Negative (Negative); Fentanyl Screen,Urine Negative (Negative); Opiate Screen,Urine Negative (Negative); THC Screen,Urine Negative (Negative)
[2024-10-08 20:10] LABS: Allen Test Performed/OK; Puncture Site Left Radial
[2024-10-08 20:25] LABS: Procalcitonin 0.63 ng/ml (0.0-0.49)
--- NOTE | 2024-10-08 20:46 | PRELIM_ITS ---
CT angiogram of the head and neck with intravenous contrast (axial sections with sagittal and coronal reformats) October 08, 2024 at 1906 hours Clinical History: CVA w/u. Comparison: No prior study is available for comparison. Findings: Head: The internal carotid, middle and anterior cerebral arteries are otherwise patent bilaterally. There is calcification of bilateral carotid siphons. The intracranial vertebral arteries are patent. The vertebrobasilar junction, basilar and posterior cerebral arteries are patent. No evidence of large vessel occlusion, critical stenosis or aneurysm. Neck: The aortic arch to the extent visualized as well as the origins of the right brachiocephalic, left common carotid, and left subclavian arteries are patent. The common carotid arteries, carotid bulbs, and internal and external carotid arteries are patent. There are atheromatous plaques in both carotid bulbs causing 20% luminal narrowing. The origins of the vertebral arteries are unremarkable. The left vertebral artery is slightly dominant. No evidence of vascular occlusion, critical stenosis, dissection or aneurysm. The soft tissues of the neck are unremarkable. Straightening of the cervical spine is identified, which may be related to muscle spasm. Degenerative changes are noted in the form of multilevel marginal osteophytes, decreased disc spaces and facet arthropathy. There are emphysematous changes in both lung apices. Impression: Head: No evidence of large vessel occlusion, critical stenosis or aneurysm. Neck: No evidence of vascular occlusion, critical stenosis, dissection or aneurysm. Other findings as described above. Report Electronically Signed By: Elisa Park 10/08/2024 8:45:35 PM [EST]
[2024-10-08 20:48] LABS: D-Dimer 1160 ng/mL (<600)
[2024-10-08 22:56] LABS: Reflex Lactate? Y
[2024-10-08 22:58] LABS: Basophils # (Auto) 0.1 Thou/mm3 (0.0-0.2); Basophils % (Auto) 0 % (0-2.5); Eosinophils % (Auto) 0 % (0-10); Hematocrit 55.2 % (41.0-53.0); Hemoglobin 18.5 g/dL (13.5-16.0); Immature Granulocytes % (Auto) 1 % (0-0); Immature Granulocytes Auto 0.31 Thou/mm3 (0.00-0.00); Lymphocytes # (Auto) 1.7 Thou/mm3 (1.0-4.8); Lymphocytes % (Auto) 6 % (10-50); Mean Corpuscular HGB Conc 33.5 g/dl (31.0-37.0); Mean Corpuscular Volume 96 fL (80-100); Monocytes # (Auto) 3.2 Thou/mm3 (0.0-0.8); Monocytes % (Auto) 12 % (0-12); Neutrophils # (Auto) 21.9 Thou/mm3 (1.8-7.7); Neutrophils % (Auto) 81 % (37-80); Nucleated Red Blood Cell % 0 /100 WBC (0); Platelet Count 167 Thou/mm3 (140-440); RDW Standard Deviation 47.4 fL (35.1-43.9); Red Blood Count 5.78 Miln/mm3 (4.50-5.90)
[2024-10-08 23:04] LABS: Troponin I 0.255 ng/mL (0.0-0.045)
[2024-10-08 23:09] LABS: White Blood Count 27.1 Thou/mm3 (3.8-10.6)
[2024-10-08 23:10] LABS: Lactate (Lactic Acid) 1.9 mMol/L (0.4-2.0)
[2024-10-08 23:12] LABS: Creatine Kinase 8113 U/L (34-171)
[2024-10-09] VITALS (17 sets, daily range): BP systolic 108–174; BP diastolic 73–87; PULSE 83–102; RESP 15–23; TEMP 36.2–37.2; O2SAT 90–99; BMI 32.0
--- NOTE | 2024-10-09 01:41 | PRELIM_ITS ---
CT scan of the chest, abdomen and pelvis with intravenous contrast (axial sections with sagittal and coronal reformats). October 08, 2024 at 2030 hours Clinical History: Fall. Comparison: No prior study is available for comparison. Findings: Limited evaluation due to respiratory motion artifact. Emphysematous changes are seen in the lungs. Subpleural scarring with cystic changes in the right lower lobe. There is no pleural effusion or pneumothorax. There is no mediastinal collection or aortic injury. There are prominent mediastinal lymph nodes. There is no pericardial effusion. There is fatty infiltration of the liver. There is mild hepatomegaly with bulging contour of the left lobe of the liver. There is a calcified gallbladder calculus, measuring 3 mm without evidence of gallbladder wall thickening or pericholecystic fluid. There is a 3.8 cm fat attenuation lesion in the left adrenal, which may represent myelolipoma. Neoplasm cannot be excluded. Left renal cysts are noted. There is bilateral perirenal fat stranding. The spleen, pancreas and right adrenal are unremarkable. The bowel is unremarkable. A Skelton catheter is seen in the urinary bladder. There is moderate enlargement of the prostate. There is no free fluid or air. No fracture is identified. Osseous degenerative changes are noted. A fat containing ventral hernia is noted. Impression: Limited evaluation as described above. 1. No visceral or bony injury to the chest, abdomen or pelvis. 2. A 3.8 cm fat attenuation lesion in the left adrenal, which may represent myelolipoma. Neoplasm cannot be excluded. Recommend clinical correlation and followup. 3. Other findings as described above. Report Electronically Signed By: Elisa Park 10/09/2024 1:40:56 AM [EST]
--- NOTE | 2024-10-09 03:38 | ESHP_ITS ---
<Statement entered by Laura Carroll MD - 10/09/24 05:38> 68-year-old male with hypertension, hyperlipidemia, bladder carcinoma status post transurethral resection, type 2 diabetes mellitus and COPD not on home oxygen who presented to the ER status post syncopal episode. Patient was found at home covered with feces and urine and subsequently ambulance was called and patient was brought into the ER. In the ER, patient underwent CT head and CTA with no acute intracranial abnormality. Patient noted to be confused and question of possible alcohol intoxication that might have led to syncopal episode. Furthermore, plan to admit the patient for syncope workup and patient also noted to have rhabdomyolysis with creatinine kinase in the 8000 and subsequently acute kidney injury for which plan to start aggressive IV fluid resuscitation.I reviewed above note and agree with findings and plans. I have also personally examined the patient with medicine team and went over assessment and plan with medical team including recruitment intern and resident physician. Documentation for date of: 10/09/24 HPI History of Present Illness History of present illness: HPI is limited as pt is poor historian and most of history reviewed with chart review and family Roverto is a 68 y/o male with PMHx of COPD (not on home oxygen, takes Trelegy), HTN, HLD, BPH, Urothelial bladder carcinoma (s/p transurethral resection 2019), non-insulin dependent type II DM, who comes in for evaluation of syncope and altered mental status. Patient was found on the floor in feces and soiled in urine facedown. It is unsure how long the patient was on the floor for. Spoke with patient's daughter who reports that patient had a friend over and may have been drinking. She is unsure who called the ambulance, however she says that her dad could of fell and been lying down on the ground for some time or could have passed out due to alcohol intoxication. She believes that one of his friends called the ambulance for him as they are very close. She is unsure how long the patient was on the floor for. She says that the patient could have fell however does not have a history of falls. She also says that the patient has been drinking more lately as he is dealing with his mother passing which happened about a year ago. She is unsure about which medicines he takes and says that is hard for her to get medical information from him. No history of strokes, seizures. No other complaints at this time. ED Course: Patient arrived to the ED with a heart rate of 111, respiratory rate of 16, saturating 91% 5 L nasal cannula, blood pressure 115/82. He was worked up and was found to have a sodium of 139, potassium 4.9, BUN/creatinine 47 and 1.6 respectively, bicarb 23, glucose 227, white count 27, hemoglobin 18.5, platelets 167. ABG was done and showed a pH of 7.36, pCO2 of 43, bicarb of 24, pO2 of 70. Lactate showed 4.2, troponin 0.261, AST 163, ALT 64. Urinalysis showed +3 protein, +1 glucose, +3 blood and rare bacteria, creatinine kinase 8267. Head CT and neck CTA were done and were negative for acute hemorrhage, mass effect, midline shift, stenosis. Patient was given 3 L of fluid, Rocephin x 1. Medicine was consulted and patient admitted to floors PMHx: As above COPD (not on home oxygen, takes Trelegy), HTN, HLD, BPH, non- insulin dependent type II DM Surgeries: Hernia repair Meds: Lisinopril, Metformin, Zoloft, Allergies: Codeine, strawberry, bee stings, pencillins (Rash) Family Hx: Dementia on mom's side, no DM, CVA and CAD. 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, used to drink, stopped drinking, and then started drinking a more after his mother passed a year ago, stopped smoking 15-20 years ago, history of meth use (several years ago) Review of Systems Review of Systems Narrative Review of Systems: 12 point ROS is limited as pt as poor historian Exam Vital Signs Temp Pulse Resp BP Pulse Ox O2 Del Method O2 Flow Rate 98.3 F 97 17 115/77 90 L Nasal Cannula 2 10/08/24 23:34 10/09/24 03:00 10/09/24 03:00 10/09/24 03:00 10/09/24 03:00 10/09/24 03:00 10/09/24 03:00 Narrative Exam General: AAOx2, unkempt, appears to be in mild distress, unaware of time, bearded male, has odor HEENT: Dry mucous membranes, PERRLA, poor dentition Cardiovascular: Systolic ejection murmur heard upon right upper sternal border, radial pulses +2 bilat, RRR Pulmonary: Wheezing not appreciated upon auscultation of lungs GI: No tenderness to light or deep palpitation, no guarding, rigidity, rebound tenderness or distension : Skelton catheter in Extremities: No presence of trace or pitting edema in lower extremities bilaterally, dorsalis pedis pulses +2 bilaterally Neuro: AAOx2, limited neurologic exam as patient is altered at this point Results: Labs 10/08/24 22:35 10/08/24 18:54 Labs: Short CBC 10/08/24 10/08/24 Range/Units 18:54 22:35 WBC 22.8 H 27.1 H (3.8-10.6) Thou/mm3 Hgb 19.5 H* 18.5 H* (13.5-16.0) g/dL Hct 58.2 H 55.2 H (41.0-53.0) % Plt Count 191 167 (140-440) Thou/mm3 BMP 10/08/24 18:54 Sodium 139 Potassium 4.9 Chloride 104 Carbon Dioxide 23.4 BUN 47 H Creatinine 1.6 H Glucose 227 H Calcium 9.7 Cardiac Enzymes 10/08/24 10/08/24 Range/Units 18:54 22:35 Total Creatine Kinase 8267 H 8113 H D (34-171) U/L Troponin I 0.261 H* 0.255 H* (0.0-0.045) ng/mL Liver Function 10/08/24 Range/Units 18:54 Total Bilirubin 1.4 H (0.3-1.2) mg/dL AST 163 H (0-34) U/L ALT 64 H (10-49) U/L Alkaline Phosphatase 72 (46-116) U/L Albumin 4.2 (3.4-4.8) gm/dL Urine 10/08/24 Range/Units 19:47 Urine Color Lt-Yellow (Lt Yel-Yel) Urine Clarity Clear (Clear/Hazy) Urine pH 6.0 (5.0-7.0) Ur Specific [place] 1.015 (1.001-1.035) Urine Protein 3+ A (Neg - Trace) Urine Glucose (UA) 1+ A (Negative) ABG Interpretation ABG results: 10/08/24 20:06 ABG pH 7.36 ABG pCO2 43 ABG pO2 70 L ABG HCO3 24 ABG O2 Saturation 94 ABG Base Excess -1 Quality Measures Quality Measures sepsis Current suspected stage: ruled out Possible source: unknown Blood cultures ordered: yes Antibiotic ordered: Yes Advance care planning discussed with:: patient and child Medications Home Medications and Allergies Home Medications ?Medication ?Instructions ?Recorded ?Confirmed ?Type finasteride 5 mg tablet (Proscar) 5 mg PO QDAY #0 tabs 11/01/16 06/05/24 History albuterol sulfate 90 mcg/actuation 1 puff inhalation D AILY PRN 07/05/19 06/05/24 History aerosol inhaler (ProAir HFA) Wheezing sertraline 100 mg tablet 200 mg PO QDAY 07/05/1912/22 History fluticasone fur. 100 mcg-umeclid 1 inh inhalation QDAY 12/11/19 06/05/24 History 62.5 mcg-vilant 25 mcg inhalat.powder (Trelegy Ellipta) aripiprazole 5 mg tablet (Abilify) 5 mg PO HS 08/09/23 06/05/24 History benzonatate 200 mg capsule 200 mg PO Q8HR 08/09/2312/22 History fenofibrate micronized 200 mg 200 mg PO DAILY 08/09/23 06/05/24 History capsule fluticasone propionate 50 1 spray intranasal DAILY 04/2406/05/24 History mcg/actuation nasal spray,suspension glipizide 5 mg tablet 5 mg PO QAM 08/09/23 4 History hydroxyzine HCl 25 mg tablet 25 mg PO HS PRN Anxiety 0 08/09/23 06/05/24 History loratadine 10 mg tablet 10 mg PO DAILY 08/09/2312/22 History tamsulosin 0.4 mg capsule (Flomax) 0.8 mg PO HS #0 cap s 06/05/24 06/05/24 History Allergies Allergy/AdvReac Type Severity Reaction Status Date / Time codeine Allergy Severe vomiting Verified 06/05/24 14:13 strawberry Allergy Severe Hives Verified 06/05/24 14:13 Bee Stings Allergy Severe ANAPHYLACTIC Uncoded 06/05/24 14:13 SHOCK Visit Medications Acetaminophen (Acetaminophen 325 Mg Tablet) 650 mg PO Q6H PRN PRN Reason: Fever >100 or pain 1-3 Stop: 11/08/24 03:04 Hydrocodone Bitart/Acetaminophen (Hydrocodone/Apap 5/325 Tablet) 1 tab PO Q4HR PRN PRN Reason: PAIN SCALE 4-6 (Moderate Stop: 10/14/24 03:04 Albuterol/Ipratropium (Albuterol/Ipratropium (Duoneb) Rt Gladys 3 Ml Nebu) 3 ml INH Q6HRRT EUNICE Stop: 11/08/24 06:59 Dextrose (Dextrose 50%-Water Inj 50 Ml Syringe) 25 ml IV Q15MIN PRN PRN Reason: BG 50-70 responsive npo pt Stop: 11/08/24 03:10 Dextrose (Dextrose 50%-Water Inj 50 Ml Syringe) 50 ml IV Q15MIN PRN PRN Reason: BG <50 OR BG <70 & pt unresponsive Stop: 11/08/24 03:10 Glucagon (Glucagon Inj 1 Mg Vial) 1 mg IM Q15MIN PRN PRN Reason: BG <70, and no IV access Heparin Sodium (Porcine) (Heparin Sod Inj 5000 Unit/Ml Vial) 5,000 unit SC Q12H EUNICE Stop: 10/23/24 08:59 Sodium Chloride (Ns) 1,000 mls @ 50 mls/hr IV .Q20H EUNICE Stop: 11/08/24 03:07 Ceftriaxone Sodium 1,000 mg/ (Sodium Chloride) 50 mls @ 100 mls/hr IV QDAY [facility] Stop: 10/16/24 08:59 Insulin Human Lispro (Insulin Lispro (Admelog) 1 Unit/0.01 Ml Unit) 0 unit SC AC [facility]; Protocol Stop: 11/08/24 07:29 Ondansetron HCl (Ondansetron Inj 2 Mg/Ml Inj 2 Ml) 4 mg IV Q6H PRN; Protocol PRN Reason: NAUSEA OR VOMITING Stop: 11/08/24 03:04 Discontinued Medications Aspirin (Aspirin 325 Mg Tablet) 325 mg PO X1 ONE Stop: 10/08/24 18:25 Last Admin: 10/08/24 19:53 Dose: Not Given Aspirin (Aspirin 300 Mg Supp) 300 mg AK X1 ONE Stop: 10/08/24 19:27 Last Admin: 10/08/24 19:53 Dose: Not Given Sodium Chloride (Ns) 1,000 mls @ 999 mls/hr IV .Q1H1M ONE Stop: 10/08/24 20:27 Last Infusion: 10/08/24 21:00 Dose: Infused Ceftriaxone Sodium 2 gm/ (Sodium Chloride) 50 mls @ 100 mls/hr IV X1 ONE Stop: 10/08/24 20:00 Last Infusion: 10/08/24 20:35 Dose: Infused Sodium Chloride (Ns) 1,000 mls @ 999 mls/hr IV .Q1H1M ONE Stop: 10/08/24 21:08 Last Infusion: 10/08/24 22:00 Dose: Infused Sodium Chloride (Ns) 500 mls @ 999 mls/hr IV .Q31M ONE Stop: 10/08/24 22:53 Last Admin: 10/08/24 23:00 Dose: Not Given Assessment & Plan Plan Assessment Roverto is a 68 y/o male with PMHx of COPD (not on home oxygen, takes Trelegy), HTN, HLD, BPH, Urothelial bladder carcinoma (s/p transurethral resection 2018), non-insulin dependent type II DM, who is currently admitted for acute encephalopathy and syncope. #Acute encephalopathy #Syncope Likely multifactorial including infectious, metabolic, seizure Initial imaging including CT head and CTA neck unremarkable No seizure hx Pt apparently has been drinking more lately, we do not have an alcohol level at this time Unknown how long patient was on floor for urine drug screen Urine drug screen unremarkable Unsure if patient had a fall Plan: ? Orthostatics vitals x 1 ? Neurochecks every 4 hours ? Seizure precautions ? Bedrest ? Follow-up alcohol level ? Consider neurology consult ? Consider physical therapy #? UTI Rare bacteria seen on urinalysis Patient did have white count of 27 No bladder wall thickening or stranding seen on CT Plan: ? Continue with Rocephin 1 g IV #THANG #Rhabdomyolysis #Lactic acidosis, resolved S/p 3L NS Unsure how long patient was on floor CK ~8267 -> 8113 Lactate downtrended to 1.9 Could be prerenal Plan: ? Urine lytes, creatinine ? Gentle normal saline 50 cc/hour ? Avoid nephrotoxic agents ? Renally dose medicines ? Trend with CMP #History of hypertension #History of hyperlipidemia Chronic Plan: ? Awaiting med rec ? Consider resuming home blood pressure medicines #Ark-[id number] diabetes mellitus type II Plan: ? Sliding scale insulin ? Hypoglycemic protocol in place ? Blood sugar checks with meals ? Follow-up A1c #History of BPH #History of urothelial bladder carcinoma status post transurethral resection Presumably takes Flomax and finasteride Plan: ? Consider resuming Flomax and finasteride ? Skelton catheter present #History of COPD Not on home oxygen Takes Trelegy at home Plan: ? DuoNebs every 6 as needed #Polycythemia #Leukocytosis Initially there was thought that this might be hemodilution, however CBC was repeated after 3 L of fluid and there was still polycythemia and leukocytosis 18.5 and 27.1 respectively There might be polycythemia due to history of COPD and WBC might be elevated due to infection Blood seen in urine, however he has history of BPH and urothelial bladder carcinoma and this is chronic Plan: ?Trend with CBC #Health Maintenance Disposition: Telemetry DVT prophylaxis: Heparin GI prophylaxis: None indicated at this time Diet: Pending swallow eval CODE STATUS: Full Patient seen and care discussed with my attending physician, Dr. Carly Roblero, PGY-1
[2024-10-09] MEDS: SODIUM CHLORIDE 0.9% 1000 ML 1,000 ML 50 ML IV (04:40)
[2024-10-09 05:08] LABS: Basophils # (Auto) 0.1 Thou/mm3 (0.0-0.2); Basophils % (Auto) 0 % (0-2.5); Eosinophils % (Auto) 4 % (0-10); Hematocrit 52.2 % (41.0-53.0); Hemoglobin 17.7 g/dL (13.5-16.0); Immature Granulocytes % (Auto) 1 % (0-0); Immature Granulocytes Auto 0.17 Thou/mm3 (0.00-0.00); Lymphocytes # (Auto) 1.5 Thou/mm3 (1.0-4.8); Lymphocytes % (Auto) 7 % (10-50); Mean Corpuscular HGB Conc 33.9 g/dl (31.0-37.0); Mean Corpuscular Volume 94 fL (80-100); Monocytes # (Auto) 2.5 Thou/mm3 (0.0-0.8); Monocytes % (Auto) 11 % (0-12); Neutrophils # (Auto) 17.8 Thou/mm3 (1.8-7.7); Neutrophils % (Auto) 77 % (37-80); Nucleated Red Blood Cell % 0 /100 WBC (0); Platelet Count 177 Thou/mm3 (140-440); RDW Standard Deviation 46.7 fL (35.1-43.9); Red Blood Count 5.53 Miln/mm3 (4.50-5.90)
[2024-10-09 05:09] LABS: White Blood Count 23.1 Thou/mm3 (3.8-10.6)
[2024-10-09 05:26] LABS: Glucose Estimated Average 157 mg/dL (80-131); Hemoglobin A1C 7.1 % Hgb (4.8-6.0)
[2024-10-09 05:41] LABS: Alanine Aminotransferase 60 U/L (10-49); Albumin, Serum 3.9 gm/dL (3.4-4.8); Albumin/Globulin Ratio 1.6 (1.2-2.2); Alkaline Phosphatase 61 U/L (46-116); Anion Gap 8 (7-16); Aspartate Amino Transferase 134 U/L (0-34); BUN/Creatinine Ratio 37 Ratio (12-20); Bilirubin,Total 0.9 mg/dL (0.3-1.2); Blood Urea Nitrogen 55 mg/dL (9-23); Calcium 9.1 mg/dL (8.3-10.6); Calcium (Corrected) 9.2 mg/dL (8.5-10.1); Carbon Dioxide 26.6 mMol/L (20.0-31.0); Cardiac Risk Estimate 5.9 RATIO (4.0-6.7); Chloride 108 mMol/L (98-107); Cholesterol 219 mg/dL (132-200); Creatinine (Component) 1.5 mg/dL (0.6-1.3); Globulin 2.5 gm/dL (2.3-3.5); Glucose 203 mg/dL (74-106); HDL Cholesterol 37 mg/dL (40-60); LDL Cholesterol,Calculated 132 mg/dL (0-130); Magnesium 2.5 mg/dL (1.6-2.6); Osmolality,Calculated 306 (275-295); Phosphorous 6.2 mg/dL (2.4-5.1); Potassium 4.7 mMol/L (3.4-5.1); Sodium 143 mMol/L (136-145); Thyroid Stimulating Hormone 0.94 uIU/mL (0.55-4.78); Total Protein 6.4 gm/dL (5.7-8.2); Triglycerides 250 mg/dL (30-150); eGFR 50 See Note
[2024-10-09 05:42] LABS: Alcohol, Blood Medical < 3.0 mg/dL (0-10.0)
--- NOTE | 2024-10-09 08:10 | PC.NURSE ---
report given from shift mgr Zaida johnston. pt is admit, vss, on o2 nc, has Skelton cath and maintained fluid. pt is taking in ice chips. pt pending admit bed at this time. pt came in due to confusion and found on ground in home. pt is a&ox3 at this time but has gen weakness mainly to lower extremities. pt pending admit bed at this time.
[2024-10-09 08:23] LABS: Chloride,Urine Random 36.8 mMol/L (55.0-125.0); Creatinine,Random Urine 107 mg/dL (30-125); Potassium,Urine Random 49 mMol/L (12-62); Sodium,Urine Random 49.3 mMol/L (20.0-110.0)
--- NOTE | 2024-10-09 09:18 | PC.NURSE ---
pt has family/friend at bedside.
--- NOTE | 2024-10-09 10:17 | PC.SS ---
Initial assessment: this is 68 year old male in the ED pending an open for admission. Patient only able to provide minimal information. Patient's friend, Mariposa London at bed side to assist with providing information. Per Mariposa, he is the patient's neighbor/friend. Mariposa informs the patient resides at home alone. Patient assigned his daughter, Rachelle as his emergency contact when asked. Per Mariposa, the patient was able to ambulate prior to the visit to the ED. Patient denies use of DME in the home. Patient informs he does not have a PCP and has not seen a doctor in a couple years. Per patient, he is scheduled to see Dr. Mooney this month on the . Patient denies being aligned with dialysis. Patient wants to return home. Patient's friend informs he is able to assist with transportation home if needed at the time of discharge. D/c plan: home Next of kin: daughter, Rachelle Bishop
--- NOTE | 2024-10-09 10:32 | PC.SS ---
ASW left a voicemail for patient's daughter, Rachelle Bishop as patient wanted to make her aware of hospital visit.
--- NOTE | 2024-10-09 11:02 | PC.NURSE ---
pt could not tolerate standing for orthostatic vitals
[2024-10-09 12:27] LABS: Band Neutrophils (Manual) 2 % (0-6); Eosinophils (Manual) 2 % (0-4); Lymphocytes (Manual) 5 % (20-44); Metamyelocytes (Manual) 4 % (0-0); Monocytes (Manual) 12 % (2-9); Myelocytes (Manual) 3 % (0-0); Neutrophils (Manual) 72 % (50-70)
[2024-10-09] MEDS: ALBUTEROL/IPRATROPIUM (Duoneb) RT SOL 3 ML NEBU INH ×2 (13:05→19:39)
--- NOTE | 2024-10-09 14:25 | ESPR_ITS ---
<Statement entered by Harika Denson MD - 10/10/24 07:33> Patient was seen and examined by me personally. I have directly supervised and reviewed documentation by the team resident and agree with its findings with any exceptions or additional findings as below. Plan of care was discussed with the attending, Dr. Chris. Harika Denson, PGY-2 Documentation for date of: 10/09/24 Subjective Subjective Interval history: 10/09/2024: Overnight admission for patient with history of COPD, type 2 diabetes, urothelial carcinoma s/p resection presenting for acute encephalopathy secondary to likely metabolic etiology versus infectious; moreover, patient found with elevated CK and rhabdomyolysis. Patient continues to be treated with IV fluid resuscitation and CIWA protocol has been initiated as the patient has history of alcohol use disorder. Exam Vital Signs Temp Pulse Resp BP Pulse Ox O2 Del Method O2 Flow Rate 98.9 F 88 20 174/77 H 98 Room Air 2 10/09/24 11:37 10/09/24 12:45 10/09/24 12:45 10/09/24 11:37 10/09/24 12:45 10/09/24 11:37 10/09/24 12:45 Narrative Exam Physical Exam: General: AAOx2, unkempt, appears to be in mild distress, unaware of time, bearded male, malodorous HEENT: Dry mucous membranes, PERRLA, poor dentition Cardiovascular: III/IV systolic ejection murmur heard upon right upper sternal border, radial pulses +2 bilat, RRR Pulmonary: Wheezing not appreciated upon auscultation of lungs, no crackles/rales/rhonchi noted GI: No tenderness to light or deep palpitation, no guarding, rigidity, rebound tenderness or distension : Skelton catheter in Extremities: No presence of trace or pitting edema in lower extremities bilaterally, dorsalis pedis pulses +2 bilaterally Neuro: AAOx2, no focal neurologic deficits noted Objective Labs 10/10/24 05:20 10/10/24 05:20 Labs: Laboratory Results - last 24 hr 10/08/24 10/08/24 10/08/24 18:54 19:47 19:53 WBC 22.8 H RBC 6.09 H Hgb 19.5 H* Hct 58.2 H MCV 96 MCH 32.0 MCHC 33.5 RDW Std Deviation 46.9 H Plt Count 191 Neut % (Auto) 84 H Lymph % (Auto) 6 L [place] % (Auto) 9 Eos % (Auto) 0 Baso % (Auto) 0 Neut # (Auto) 19.1 H Lymph # (Auto) 1.4 [place] # (Auto) 2.1 H Eos # (Auto) 0.0 Baso # (Auto) 0.1 Immature Gran # (Auto) 0.24 H Absolute Nucleated RBC 0.00 Immature Gran % 1 H Neutrophils % (Manual) Monocytes % (Manual) Eosinophils % (Manual) Metamyelocytes % Myelocytes % Nucleated RBC % 0 Band Neutrophils Lymphocytes (Manual) PT 11.4 INR 1.0 APTT 23.9 D-Dimer 1160 H Puncture Site ABG pH ABG pCO2 ABG pO2 ABG HCO3 ABG O2 Saturation ABG Base Excess FiO2 Sodium 139 Potassium 4.9 Chloride 104 Carbon Dioxide 23.4 Anion Gap 12 BUN 47 H Creatinine 1.6 H Estim Creat Clear Calc 52.5 L eGFR 46 L BUN/Creatinine Ratio 29 H Glucose [address] Glu mg/dL Hemoglobin A1c Calculated Osmolality 296 H Lactic Acid 4.2 H* Calcium 9.7 Corrected Calcium 9.7 Phosphorus 5.0 Magnesium 2.4 Total Bilirubin 1.4 H AST 163 H ALT 64 H Alkaline Phosphatase 72 Total Creatine Kinase 8267 H Troponin I 0.261 H* B-Natriuretic Peptide 40 Total Protein 7.2 Albumin 4.2 Globulin 3.0 Albumin/Globulin Ratio 1.4 Triglycerides Cholesterol LDL Cholesterol, Calc HDL Cholesterol Cholesterol/HDL Ratio Procalcitonin 0.63 H TSH Ur Collection Type Clean Catch Urine Color Lt-Yellow Urine Clarity Clear Urine pH 6.0 Ur Specific [place] 1.015 Urine Protein 3+ A Urine Glucose (UA) 1+ A Urine Ketones Trace Urine Blood 3+ A Urine Nitrite Negative Urine Bilirubin Negative Urine Urobilinogen (Auto) Negative Ur Leukocyte Esterase Negative Urine RBC 4 H Urine WBC < 1 Ur Squamous Epith Cells 0 Urine Bacteria Rare Ur Random Creatinine Ur Random Sodium Ur Random Potassium Ur Random Chloride Urine Opiates Screen Negative Urine Fentanyl Screen Negative Ur Barbiturates Screen Negative U Amphetamin/Meth Scrn Negative U Benzodiazepines Scrn Negative U Cocaine Metab Screen Negative U Marijuana (THC) Screen Negative Ethyl Alcohol 10/08/24 10/08/24 10/08/24 20:06 22:35 22:59 WBC 27.1 H RBC 5.78 Hgb 18.5 H* Hct 55.2 H MCV 96 MCH 32.0 MCHC 33.5 RDW Std Deviation 47.4 H Plt Count 167 Neut % (Auto) 81 H Lymph % (Auto) 6 L [place] % (Auto) 12 Eos % (Auto) 0 Baso % (Auto) 0 Neut # (Auto) 21.9 H Lymph # (Auto) 1.7 [place] # (Auto) 3.2 H Eos # (Auto) 0.0 Baso # (Auto) 0.1 Immature Gran # (Auto) 0.31 H Absolute Nucleated RBC 0.00 Immature Gran % 1 H Neutrophils % (Manual) Monocytes % (Manual) Eosinophils % (Manual) Metamyelocytes % Myelocytes % Nucleated RBC % 0 Band Neutrophils Lymphocytes (Manual) PT INR APTT D-Dimer Puncture Site Left Radial ABG pH 7.36 ABG pCO2 43 ABG pO2 70 L ABG HCO3 24 ABG O2 Saturation 94 ABG Base Excess -1 FiO2 28 Sodium Potassium Chloride Carbon Dioxide Anion Gap BUN Creatinine Estim Creat Clear Calc eGFR BUN/Creatinine Ratio Glucose Estimated Ave Glu mg/dL Hemoglobin A1c Calculated Osmolality Lactic Acid 1.9 Calcium Corrected Calcium Phosphorus Magnesium Total Bilirubin AST ALT Alkaline Phosphatase Total Creatine Kinase 8113 H D Troponin I 0.255 H* B-Natriuretic Peptide Total Protein Albumin Globulin Albumin/Globulin Ratio Triglycerides Cholesterol LDL Cholesterol, Calc HDL Cholesterol Cholesterol/HDL Ratio Procalcitonin TSH Ur Collection Type Urine Color Urine Clarity Urine pH Ur Specific [place] Urine Protein Urine Glucose (UA) Urine Ketones Urine Blood Urine Nitrite Urine Bilirubin Urine Urobilinogen (Auto) Ur Leukocyte Esterase Urine RBC Urine WBC Ur Squamous Epith Cells Urine Bacteria Ur Random Creatinine Ur Random Sodium Ur Random Potassium Ur Random Chloride Urine Opiates Screen Urine Fentanyl Screen Ur Barbiturates Screen U Amphetamin/Meth Scrn U Benzodiazepines Scrn U Cocaine Metab Screen U Marijuana (THC) Screen Ethyl Alcohol 10/09/24 10/09/24 04:46 07:49 WBC 23.1 H RBC 5.53 Hgb 17.7 H* Hct 52.2 MCV 94 MCH 32.0 MCHC 33.9 RDW Std Deviation 46.7 H Plt Count 177 Neut % (Auto) 77 Lymph % (Auto) 7 L [place] % (Auto) 11 Eos % (Auto) 4 Baso % (Auto) 0 Neut # (Auto) 17.8 H Lymph # (Auto) 1.5 [place] # (Auto) 2.5 H Eos # (Auto) 1.0 H Baso # (Auto) 0.1 Immature Gran # (Auto) 0.17 H Absolute Nucleated RBC 0.00 Immature Gran % 1 H Neutrophils % (Manual) 72 H Monocytes % (Manual) 12 H Eosinophils % (Manual) 2 Metamyelocytes % 4 H Myelocytes % 3 H Nucleated RBC % 0 Band Neutrophils 2 Lymphocytes (Manual) 5 L PT INR APTT D-Dimer Puncture Site ABG pH ABG pCO2 ABG pO2 ABG HCO3 ABG O2 Saturation ABG Base Excess FiO2 Sodium 143 Potassium 4.7 Chloride 108 H Carbon Dioxide 26.6 Anion Gap 8 BUN 55 H Creatinine 1.5 H Estim Creat Clear Calc 56.0 L eGFR 50 L BUN/Creatinine Ratio 37 H Glucose [address] Glu mg/dL 157 H Hemoglobin A1c 7.1 H Calculated Osmolality 306 H Lactic Acid Calcium 9.1 Corrected Calcium 9.2 Phosphorus 6.2 H Magnesium 2.5 Total Bilirubin 0.9 D AST 134 H ALT 60 H Alkaline Phosphatase 61 Total Creatine Kinase Troponin I B-Natriuretic Peptide Total Protein 6.4 Albumin 3.9 Globulin 2.5 Albumin/Globulin Ratio 1.6 Triglycerides 250 H Cholesterol 219 H LDL Cholesterol, Calc 132 H HDL Cholesterol 37 L Cholesterol/HDL Ratio 5.9 Procalcitonin TSH 0.94 Ur Collection Type Urine Color Urine Clarity Urine pH Ur Specific [place] Urine Protein Urine Glucose (UA) Urine Ketones Urine Blood Urine Nitrite Urine Bilirubin Urine Urobilinogen (Auto) Ur Leukocyte Esterase Urine RBC Urine WBC Ur Squamous Epith Cells Urine Bacteria Ur Random Creatinine 107 Ur Random Sodium 49.3 Ur Random Potassium 49 Ur Random Chloride 36.8 L Urine Opiates Screen Urine Fentanyl Screen Ur Barbiturates Screen U Amphetamin/Meth Scrn U Benzodiazepines Scrn U Cocaine Metab Screen U Marijuana (THC) Screen Ethyl Alcohol < 3.0 ABG Interpretation ABG results: 10/08/24 20:06 ABG pH 7.36 ABG pCO2 43 ABG pO2 70 L ABG HCO3 24 ABG O2 Saturation 94 ABG Base Excess -1 Quality Measures Quality Measures sepsis Current suspected stage: ruled out Possible source: unknown Blood cultures ordered: yes Antibiotic ordered: Yes Advance care planning discussed with:: patient and child Assessment & Plan Assessment Current Active Medications: Generic Name Dose Route Start Last Admin Trade Name Freq PRN Reason Stop Dose Admin Acetaminophen 650 mg 10/09/24 03:05 Acetaminophen 325 Mg Tablet PO 11/08/24 03:04 Q6H PRN Fever >100 or pain 1-3 Hydrocodone Bitart/Acetaminophen 1 tab 10/09/24 03:05 Hydrocodone/Apap 5/325 Tablet PO 10/14/24 03:04 Q4HR PRN PAIN SCALE 4-6 (Moderate Albuterol/Ipratropium 3 ml 10/09/24 07:00 10/09/24 13:05 Albuterol/Ipratropium (Duoneb) Rt Gladys 3 Ml Nebu INH 11/08/24 06:59 3 ml Q6HRRT EUNICE Administration Dextrose 25 ml 10/09/24 03:11 Dextrose 50%-Water Inj 50 Ml Syringe IV 11/08/24 03:10 Q15MIN PRN BG 50-70 responsive npo pt Dextrose 50 ml 10/09/24 03:11 Dextrose 50%-Water Inj 50 Ml Syringe IV 11/08/24 03:10 Q15MIN PRN BG <50 OR BG <70 & pt unresponsive Folic Acid 1 mg 10/09/24 09:00 Folic Acid 1 Mg Tablet PO 10/14/24 08:59 BID EUNICE Glucagon 1 mg 10/09/24 03:11 Glucagon Inj 1 Mg Vial IM Q15MIN PRN BG <70, and no IV access Heparin Sodium (Porcine) 5,000 unit 10/09/24 09:00 Heparin Sod Inj 5000 Unit/Ml Vial SC 10/23/24 08:59 Q12H [facility] Ceftriaxone Sodium 1,000 mg/ 50 mls @ 100 mls/hr 10/09/24 21:00 Sodium Chloride IV 10/16/24 20:59 QDAY [facility] Sodium Chloride 1,000 mls @ 200 mls/hr 10/09/24 11:38 Ns IV 11/08/24 11:37 .Q5H [facility] Insulin Human Lispro 0 unit 10/09/24 07:30 Insulin Lispro (Admelog) 1 Unit/0.01 Ml Unit SC 11/08/24 07:29 AC [facility] Protocol Lorazepam 0.5 mg 10/09/24 08:35 Lorazepam 0.5 Mg Tablet PO 10/14/24 08:34 Q4HR PRN CIWA Score 2-6 Lorazepam 1 mg 10/09/24 08:35 Lorazepam 0.5 Mg Tablet PO 10/14/24 08:34 Q4HR PRN CIWA SCORE 7-11 Lorazepam 2 mg 10/09/24 08:35 Lorazepam 0.5 Mg Tablet PO 10/14/24 08:34 Q4HR PRN CIWA SCORE 12-15 Lorazepam 1 mg 10/09/24 08:35 Lorazepam 2 Mg/Ml Vial IV X1 PRN Breakthrough Agitation Ondansetron HCl 4 mg 10/09/24 03:05 Ondansetron Inj 2 Mg/Ml Inj 2 Ml IV 11/08/24 03:04 Q6H PRN NAUSEA OR VOMITING Protocol Thiamine HCl 100 mg 10/09/24 09:00 Thiamine 100 Mg Tablet PO 10/14/24 08:59 BID EUNICE Plan 68 y/o male with PMHx of COPD (not on home oxygen, takes Trelegy), HTN, HLD, BPH, Urothelial bladder carcinoma (s/p transurethral resection 2018), non- insulin dependent type II DM, who is currently admitted for acute encephalopathy and syncope. #Acute encephalopathy #Syncope Likely multifactorial including infectious, metabolic; less likely 2/2 to seizure (No seizure hx) Initial imaging including CT head and CTA neck unremarkable Pt apparently has been drinking more lately, we do not have an alcohol level at this time Urine drug screen unremarkable Orthostatics vitals negative Alcohol level within normal limits Plan: Neurochecks every 4 hours Seizure precautions Physical therapy ordered #THANG #Rhabdomyolysis #Lactic acidosis, resolved Per HPI patient presented to the ED after he was found down for an unknown amount of time S/p 3L NS in the ED CK ~8267 -> 8113 Lactate downtrended to 1.9 Urine sodium, potassium wnl, chloride low at 36.8mmol/L, Plan: Normal saline 200 cc/hour Avoid nephrotoxic agents Renally dose medicines Trend with CMP #History of hypertension #History of hyperlipidemia Chronic medical conditions Pending med rec Plan: Will consider resuming home blood pressure medications when appropriate #[id number] diabetes mellitus type II A1c of 7.1 on 10/09/2024 Plan: Sliding scale insulin Hypoglycemic protocol in place Blood sugar checks with meals Follow-up A1c #History of BPH #History of urothelial bladder carcinoma status post transurethral resection Presumably takes Flomax and finasteride Plan: Will consider resuming Flomax and finasteride [place] in #History of COPD Not on home oxygen Takes Trelegy at home Plan: Continue DuoNebs every 6 as needed #Polycythemia #Leukocytosis #Bacteriuria noted Initially there was thought that this might be hemodilution, however CBC was repeated after 3 L of fluid and there was still polycythemia and leukocytosis 18.5 and 27.1 respectively Polycythemia likely due to history of COPD and WBC might be elevated due to infection Blood seen in urine, however he has history of BPH and urothelial bladder carcinoma and this is chronic Plan: Empiric IV Rocephin initiated, continue Trend with CBC #Alcohol-use disorder History of alcohol use disorder as noted in HPI Unknown last time to drink 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 Chris and senior resident Dr. Jarett Carvajal, PGY-1 Attending Provider Attestation/Addendum I reviewed labs, imaging, EKG, home medications and prior available records. Face to face evaluation was performed by me. I have personally examined the patient and discussed assessment and plan with the IM team. I reviewed the resident note and agree with the plan with exceptions as below. Acute encephalopathy Lactic acidosis THANG Rhabdomyolysis Leukocytosis Non-STEMI History of alcohol use Continue aggressive IV hydration Monitor kidney function: Creatinine slightly improved Avoid nephrotoxins. Renally dosed medications Trend WBC: Downtrending Trend troponin: Peaked Ordered PT evaluation
--- NOTE | 2024-10-09 17:45 | PC.NURSE ---
pt changed and cleaned at request. applied barrier cream to buttocks. placed pt up in bed and given meal tray.
[2024-10-09] MEDS: SODIUM CHLORIDE 0.9% 1000 ML 1,000 ML 200 ML IV ×3 (18:44→20:46)
[2024-10-09] MEDS: THIAMINE 100 MG TABLET PO ×2 (18:51→21:24)
[2024-10-09] MEDS: FOLIC ACID 1 MG TABLET PO ×2 (18:51→21:24)
[2024-10-09] MEDS: HEPARIN SOD INJ 5000 UNIT/ML VIAL SC ×2 (18:51→21:24)
[2024-10-09] MEDS: HYDROcodone/APAP 5/325 TABLET 1 TAB PO (21:04)
[2024-10-09] MEDS: cefTRIAXone 1,000 MG in SODIUM CHLORIDE 0.9% (Popper) 50 ML 100 MG IV (21:05)
[2024-10-10] VITALS (11 sets, daily range): BP systolic 123–136; BP diastolic 69–79; PULSE 79–98; RESP 14–97; TEMP 36.3–36.9; O2SAT 94–99; BMI 29.5; BMI 13.0
[2024-10-10] MEDS: ALBUTEROL/IPRATROPIUM (Duoneb) RT SOL 3 ML NEBU INH ×4 (00:18→19:19)
[2024-10-10] MEDS: SODIUM CHLORIDE 0.9% 1000 ML 1,000 ML 200 ML IV (02:25)
[2024-10-10 05:40] LABS: Basophils # (Auto) 0.1 Thou/mm3 (0.0-0.2); Basophils % (Auto) 0 % (0-2.5); Eosinophils # (Auto) 0.1 Thou/mm3 (0.0-0.5); Eosinophils % (Auto) 1 % (0-10); Hematocrit 47.2 % (41.0-53.0); Hemoglobin 15.4 g/dL (13.5-16.0); Immature Granulocytes % (Auto) 0 % (0-0); Immature Granulocytes Auto 0.04 Thou/mm3 (0.00-0.00); Lymphocytes # (Auto) 1.5 Thou/mm3 (1.0-4.8); Lymphocytes % (Auto) 14 % (10-50); Mean Corpuscular HGB Conc 32.6 g/dl (31.0-37.0); Mean Corpuscular Hemoglobin 31.8 pg (25.0-35.0); Mean Corpuscular Volume 97 fL (80-100); Monocytes # (Auto) 1.3 Thou/mm3 (0.0-0.8); Monocytes % (Auto) 12 % (0-12); Neutrophils # (Auto) 8.2 Thou/mm3 (1.8-7.7); Neutrophils % (Auto) 73 % (37-80); Nucleated Red Blood Cell % 0 /100 WBC (0); Platelet Count 137 Thou/mm3 (140-440); RDW Standard Deviation 48.6 fL (35.1-43.9); Red Blood Count 4.85 Miln/mm3 (4.50-5.90); White Blood Count 11.2 Thou/mm3 (3.8-10.6)
[2024-10-10 05:53] LABS: Partial Thromboplastin Time 23.6 Seconds (22.0-36.0); Prothrombin Time 10.8 Seconds (9.0-12.2)
[2024-10-10 06:43] LABS: Alanine Aminotransferase 55 U/L (10-49); Albumin, Serum 3.2 gm/dL (3.4-4.8); Albumin/Globulin Ratio 1.5 (1.2-2.2); Alkaline Phosphatase 51 U/L (46-116); Anion Gap 6 (7-16); Aspartate Amino Transferase 123 U/L (0-34); BUN/Creatinine Ratio 35 Ratio (12-20); Bilirubin,Total 0.8 mg/dL (0.3-1.2); Blood Urea Nitrogen 35 mg/dL (9-23); Calcium 8.3 mg/dL (8.3-10.6); Calcium (Corrected) 8.9 mg/dL (8.5-10.1); Carbon Dioxide 26.9 mMol/L (20.0-31.0); Chloride 106 mMol/L (98-107); Estimated Creatinine Clearance 84.8 mL/min (>60); Globulin 2.2 gm/dL (2.3-3.5); Glucose 139 mg/dL (74-106); Osmolality,Calculated 287 (275-295); Potassium 4.5 mMol/L (3.4-5.1); Sodium 139 mMol/L (136-145); Total Protein 5.4 gm/dL (5.7-8.2); eGFR > 60 See Note
[2024-10-10 08:19] LABS: Creatine Kinase 3299 U/L (34-171)
[2024-10-10] MEDS: THIAMINE 100 MG TABLET PO ×2 (08:47→21:10)
[2024-10-10] MEDS: cefTRIAXone 1,000 MG in SODIUM CHLORIDE 0.9% (Popper) 50 ML 100 MG IV (08:47)
[2024-10-10] MEDS: FOLIC ACID 1 MG TABLET PO ×2 (08:47→21:10)
[2024-10-10] MEDS: LORazepam 0.5 MG TABLET PO ×2 (08:47→21:25)
[2024-10-10] MEDS: SENNA TABLET 1 TAB PO (08:47)
[2024-10-10] MEDS: HEPARIN SOD INJ 5000 UNIT/ML VIAL SC ×2 (08:53→21:13)
--- NOTE | 2024-10-10 10:04 | PC.SS ---
Follow up note: CWAL protocol. Pt is on IV fluids for hydration.
--- NOTE | 2024-10-10 10:13 | XR_ITS ---
EXAMINATION: US venous doppler LE BI HISTORY: Nonsymmetric pitting edema COMPARISON: None. FINDINGS: Mckinley scale, color doppler, and spectral waveforms of the bilateral lower extremity veins. The imaged veins are unremarkable without evidence of internal thrombus. Spectral Doppler imaging demonstrates normal wave forms. The overlying soft tissues are unremarkable. IMPRESSION: Negative for deep venous thrombosis.
[2024-10-10] MEDS: HYDROcodone/APAP 5/325 TABLET 1 TAB PO ×2 (10:37→21:10)
[2024-10-10] MEDS: SODIUM CHLORIDE 0.9% 1000 ML 1,000 ML 100 ML IV (10:37)
--- NOTE | 2024-10-10 11:03 | ESPR_ITS ---
<Statement entered by Harika Denson MD - 10/11/24 07:54> Patient was seen and examined by me personally. I have directly supervised and reviewed documentation by the team resident and agree with its findings with any exceptions or additional findings as below. Plan of care was discussed with the attending, Dr. Chris. Patient is doing better this morning, complained of thirst and continued muscle aches. Continued fluids at 100 ml/hr. THANG resolved. Anticipate discharge likely tomorrow. Harika Denson, PGY-2 Documentation for date of: 10/10/24 Subjective Subjective Interval history: 10/10/2024: No acute overnight events to report. Patient seen and examined in hospital bed, is more awake and answering questions appropriately at this time. Patient denies having any concerning symptoms such as chest pain, increased dyspnea, palpitations, dizziness or new headaches. Patient's mood is somewhat labile and he is apologetic about not seeing a doctor for a long time. As noted in HPI the patient has recent passing of a friend which most likely is exacerbating his use of alcohol. Patient's rhabdomyolysis is improving and we will start weaning off IV fluid resuscitation. Patient did have +1 pitting edema on the left lower extremity versus nonpitting edema on the right, as such we will order ultrasound of lower extremities to rule out DVT. Patient's ASCVD score is very high and he will likely benefit from statin therapy but we will wait as the patient does have active rhabdomyolysis. Exam Vital Signs Temp Pulse Resp BP Pulse Ox O2 Del Method O2 Flow Rate 97.9 F 87 20 129/69 95 Nasal Cannula 2 10/10/24 08:00 10/10/24 08:00 10/10/24 08:00 10/10/24 08:00 10/10/24 08:00 10/10/24 08:00 10/10/24 08:00 Narrative Exam Physical Exam: General: Awake, appears to be in mild distress, answering questions appropriately HEENT: Dry mucous membranes, PERRLA, poor dentition Cardiovascular: III/IV systolic ejection murmur heard upon right upper sternal border, radial pulses +2 bilat, RRR Pulmonary: CTA b/l no wheeze, rales, rhonchi noted GI: Mild tender on LUQ, otherwise no tenderness to light or deep palpitation, no guarding, rigidity, rebound tenderness or distension : Skel[place] catheter in Extremities:+1 pitting edema noted on L lower ext vs. nonpitting edema on R lower ext, dorsalis pedis pulses +2 bilaterally Neuro: AAOx3, no focal neurologic deficits noted Objective Labs 10/11/24 05:03 10/11/24 05:03 Labs: Laboratory Results - last 24 hr 10/09/24 10/10/24 04:46 05:20 WBC 11.2 H D RBC 4.85 Hgb 15.4 D Hct 47.2 MCV 97 MCH 31.8 MCHC 32.6 RDW Std Deviation 48.6 H Plt Count 137 L D Neut % (Auto) 73 Lymph % (Auto) 14 [place] % (Auto) 12 Eos % (Auto) 1 Baso % (Auto) 0 Neut # (Auto) 8.2 H Lymph # (Auto) 1.5 [place] # (Auto) 1.3 H Eos # (Auto) 0.1 Baso # (Auto) 0.1 Immature Gran # (Auto) 0.04 H Absolute Nucleated RBC 0.00 Immature Gran % 0 Neutrophils % (Manual) 72 H Monocytes % (Manual) 12 H Eosinophils % (Manual) 2 Metamyelocytes % 4 H Myelocytes % 3 H Nucleated RBC % 0 Band Neutrophils 2 Lymphocytes (Manual) 5 L PT 10.8 INR 1.0 APTT 23.6 Sodium 139 Potassium 4.5 Chloride 106 Carbon Dioxide 26.9 Anion Gap 6 L BUN 35 H Creatinine 1.0 D Estim Creat Clear Calc 84.8 eGFR > 60 BUN/Creatinine Ratio 35 H Glucose 139 H D Calculated Osmolality 287 Calcium 8.3 Corrected Calcium 8.9 Total Bilirubin 0.8 AST 123 H ALT 55 H Alkaline Phosphatase 51 Total Creatine Kinase 3299 H D Total Protein 5.4 L Albumin 3.2 L D Globulin 2.2 L Albumin/Globulin Ratio 1.5 ABG Interpretation ABG results: 10/08/24 20:06 ABG pH 7.36 ABG pCO2 43 ABG pO2 70 L ABG HCO3 24 ABG O2 Saturation 94 ABG Base Excess -1 Quality Measures Quality Measures sepsis Current suspected stage: ruled out Possible source: unknown Blood cultures ordered: yes Antibiotic ordered: No Advance care planning discussed with:: patient Assessment & Plan Assessment Current Active Medications: Generic Name Dose Route Start Last Admin Trade Name Freq PRN Reason Stop Dose Admin Acetaminophen 650 mg 10/09/24 03:05 Acetaminophen 325 Mg Tablet PO 04/10/25 03:04 Q6H PRN Fever >100 or pain 1-3 Hydrocodone Bitart/Acetaminophen 1 tab 10/09/24 03:05 10/10/24 10:37 Hydrocodone/Apap 5/325 Tablet PO 10/14/24 03:04 1 tab Q4HR PRN Administration PAIN SCALE 4-6 (Moderate Albuterol/Ipratropium 3 ml 10/09/24 07:00 10/10/24 07:27 Albuterol/Ipratropium (Duoneb) Rt Gladys 3 Ml Nebu INH 11/08/24 06:59 3 ml Q6HRRT EUNICE Administration Dextrose 25 ml 10/09/24 03:11 Dextrose 50%-Water Inj 50 Ml Syringe IV 11/08/24 03:10 Q15MIN PRN BG 50-70 responsive npo pt Dextrose 50 ml 10/09/24 03:11 Dextrose 50%-Water Inj 50 Ml Syringe IV 11/08/24 03:10 Q15MIN PRN BG <50 OR BG <70 & pt unresponsive Folic Acid 1 mg 10/09/24 09:00 10/10/24 08:47 Folic Acid 1 Mg Tablet PO 10/14/24 08:59 1 mg BID EUNICE Administration Glucagon 1 mg 10/09/24 03:11 Glucagon Inj 1 Mg Vial IM Q15MIN PRN BG <70, and no IV access Heparin Sodium (Porcine) 5,000 unit 10/09/24 09:00 10/10/24 08:53 Heparin Sod Inj 5000 Unit/Ml Vial SC 10/23/24 08:59 5,000 unit Q12H EUNICE Administration Sodium Chloride 1,000 mls @ 100 mls/hr 10/10/24 10:12 10/10/24 10:37 Ns IV 10/10/24 20:11 100 mls/hr .Q10H EUNICE Administration Insulin Human Lispro 0 unit 10/09/24 07:30 10/10/24 08:46 Insulin Lispro (Admelog) 1 Unit/0.01 Ml Unit SC 11/08/24 07:29 Not Given AC EUNICE Protocol Lorazepam 0.5 mg 10/09/24 08:35 10/10/24 08:47 Lorazepam 0.5 Mg Tablet PO 10/14/24 08:34 0.5 mg Q4HR PRN Administration CIWA Score 2-6 Lorazepam 1 mg 10/09/24 08:35 Lorazepam 0.5 Mg Tablet PO 10/14/24 08:34 Q4HR PRN CIWA SCORE 7-11 Lorazepam 2 mg 10/09/24 08:35 Lorazepam 0.5 Mg Tablet PO 10/14/24 08:34 Q4HR PRN CIWA SCORE 12-15 Lorazepam 1 mg 10/09/24 08:35 Lorazepam 2 Mg/Ml Vial IV X1 PRN Breakthrough Agitation Ondansetron HCl 4 mg 10/09/24 03:05 Ondansetron Inj 2 Mg/Ml Inj 2 Ml IV 11/08/24 03:04 Q6H PRN NAUSEA OR VOMITING Protocol Sennosides 1 tab 10/10/24 09:00 10/10/24 08:47 Senna Tablet PO 11/09/24 08:59 1 tab QDAY EUNICE Administration Protocol Thiamine HCl 100 mg 10/09/24 09:00 10/10/24 08:47 Thiamine 100 Mg Tablet PO 10/14/24 08:59 100 mg BID EUNICE Administration Plan 68 y/o male with PMHx of COPD (not on home oxygen, takes Trelegy), HTN, HLD, BPH, Urothelial bladder carcinoma (s/p transurethral resection 2018), non- insulin dependent type II DM, who is currently admitted for acute encephalopathy and syncope. #Acute encephalopathy #Syncope Likely multifactorial including infectious, metabolic; less likely 2/2 to seizure (No seizure hx) Initial imaging including CT head and CTA neck unremarkable Pt apparently has been drinking more lately, we do not have an alcohol level at this time Urine drug screen unremarkable Orthostatics vitals negative Alcohol level within normal limits Plan: Neurochecks every 4 hours Seizure precautions Physical therapy ordered #THANG, improving #Rhabdomyolysis #Lactic acidosis, resolved Per HPI patient presented to the ED after he was found down for an unknown amount of time S/p 3L NS in the ED CK ~8267 -> 8113 -->3299 Lactate downtrended to 1.9 Urine sodium, potassium wnl, chloride low at 36.8mmol/L, Plan: Normal saline 100 cc/hour Avoid nephrotoxic agents Renally dose medicines Trend with CMP #Lower extremity edema On exam, patient does have asymmteric pitting edema on the L vs R Well's score of 2-3 Plan: U/S DVT ordered Weaning down IVF #History of hypertension #History of hyperlipidemia 44.8% Risk of cardiovascular event (coronary or stroke or non-fatal AR or stroke) in next 10 years. Chronic medical conditions Pending med rec Plan: Will consider resuming home blood pressure medications when appropriate Patient can benefit from high-intensity statin therapy - but we will wait as patient has rhabdomyolysis #[id number] diabetes mellitus type II A1c of 7.1 on 10/09/2024 Plan: Sliding scale insulin Hypoglycemic protocol in place Blood sugar checks with meals #History of BPH #History of urothelial bladder carcinoma status post transurethral resection Presumably takes Flomax and finasteride Plan: Will consider resuming Flomax and finasteride - pending med red [place]el[place] in #History of COPD Not on home oxygen Takes Trelegy at home Plan: Continue DuoNebs every 6 as needed #Polycythemia, improving - likely due to dehydration #Leukocytosis, likely reactive 2/2 rhabdo Initially there was thought that this might be hemodilution, however CBC was repeated after 3 L of fluid and there was still polycythemia and leukocytosis 18.5 and 27.1 respectively Polycythemia likely due to history of COPD and WBC might be elevated due to infection Blood seen in urine, however he has history of BPH and urothelial bladder carcinoma and this is chronic Plan: Discontinued empiric IV antibiotics #Alcohol-use disorder History of alcohol use disorder as noted in HPI Unknown last time to drink Plan: [facility]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 Chris and senior resident Dr. Jarett Carvajal, PGY-1 Attending Provider Attestation/Addendum I reviewed labs, imaging, EKG, home medications and prior available records. Face to face evaluation was performed by me. I have personally examined the patient and discussed assessment and plan with the IM team. I reviewed the resident note and agree with the plan with exceptions as below. Acute encephalopathy Lactic acidosis THANG Rhabdomyolysis Leukocytosis Non-STEMI History of alcohol use Decreased the rate of IV fluids Monitor kidney function: Creatinine improved CPK is downtrending Avoid nephrotoxins. Renally dosed medications Trend WBC: Downtrending Trend troponin: Peaked Ordered PT evaluation: Recommended SNF
[2024-10-10] MEDS: INSULIN LISPRO (AdmeLOG) 1 UNIT/0.01 ML UNIT SC (12:18)
--- NOTE | 2024-10-10 14:09 | PC.PT ---
Patient is safe to ambulate to the bathroom using a FWW and 1 staff assist. RN made aware.
[2024-10-10] MEDS: BALSAM PERU/CASTOR OIL (Venelex) 60 GM TUBE TOP (21:10)
[2024-10-10] MEDS: SODIUM CHLORIDE 0.9% 1000 ML 1,000 ML 50 ML IV (21:13)
[2024-10-11] VITALS (8 sets, daily range): BP systolic 136–160; BP diastolic 87–97; PULSE 82–111; RESP 13–96; TEMP 36.3–36.8; O2SAT 91–99; BMI 29.5
[2024-10-11] MEDS: ALBUTEROL/IPRATROPIUM (Duoneb) RT SOL 3 ML NEBU INH ×3 (00:21→12:08)
[2024-10-11] MEDS: HYDROcodone/APAP 5/325 TABLET 1 TAB PO (04:46)
[2024-10-11] MEDS: LORazepam 0.5 MG TABLET PO (04:46)
[2024-10-11 05:41] LABS: Basophils # (Auto) 0.1 Thou/mm3 (0.0-0.2); Basophils % (Auto) 1 % (0-2.5); Eosinophils # (Auto) 0.2 Thou/mm3 (0.0-0.5); Eosinophils % (Auto) 2 % (0-10); Hematocrit 43.2 % (41.0-53.0); Hemoglobin 14.3 g/dL (13.5-16.0); Immature Granulocytes % (Auto) 1 % (0-0); Immature Granulocytes Auto 0.07 Thou/mm3 (0.00-0.00); Lymphocytes # (Auto) 1.5 Thou/mm3 (1.0-4.8); Lymphocytes % (Auto) 18 % (10-50); Mean Corpuscular HGB Conc 33.1 g/dl (31.0-37.0); Mean Corpuscular Hemoglobin 31.9 pg (25.0-35.0); Mean Corpuscular Volume 96 fL (80-100); Monocytes # (Auto) 1.1 Thou/mm3 (0.0-0.8); Monocytes % (Auto) 13 % (0-12); Neutrophils # (Auto) 5.4 Thou/mm3 (1.8-7.7); Neutrophils % (Auto) 65 % (37-80); Nucleated Red Blood Cell % 0 /100 WBC (0); Platelet Count 151 Thou/mm3 (140-440); RDW Standard Deviation 46.8 fL (35.1-43.9); Red Blood Count 4.48 Miln/mm3 (4.50-5.90); White Blood Count 8.3 Thou/mm3 (3.8-10.6)
[2024-10-11 06:14] LABS: Alanine Aminotransferase 67 U/L (10-49); Albumin, Serum 3.2 gm/dL (3.4-4.8); Albumin/Globulin Ratio 1.7 (1.2-2.2); Alkaline Phosphatase 51 U/L (46-116); Anion Gap 9 (7-16); Aspartate Amino Transferase 136 U/L (0-34); BUN/Creatinine Ratio 24 Ratio (12-20); Bilirubin,Total 0.8 mg/dL (0.3-1.2); Blood Urea Nitrogen 19 mg/dL (9-23); Calcium 8.4 mg/dL (8.3-10.6); Chloride 103 mMol/L (98-107); Creatinine (Component) 0.8 mg/dL (0.6-1.3); Estimated Creatinine Clearance 106.1 mL/min (>60); Globulin 1.9 gm/dL (2.3-3.5); Glucose 121 mg/dL (74-106); Osmolality,Calculated 280 (275-295); Potassium 4.2 mMol/L (3.4-5.1); Sodium 139 mMol/L (136-145); Total Protein 5.1 gm/dL (5.7-8.2); eGFR > 60 See Note
[2024-10-11] MEDS: HEPARIN SOD INJ 5000 UNIT/ML VIAL SC (07:59)
[2024-10-11] MEDS: FOLIC ACID 1 MG TABLET PO (07:59)
[2024-10-11] MEDS: THIAMINE 100 MG TABLET PO (07:59)
[2024-10-11] MEDS: SENNA TABLET 1 TAB PO (07:59)
[2024-10-11] MEDS: BALSAM PERU/CASTOR OIL (Venelex) 60 GM TUBE TOP (08:00)
--- NOTE | 2024-10-11 09:37 | PC.SS ---
SS has sent inquiry to the local SNF using [facility]. PASRR assessment has been started but Level II Mental Health Evaluation referral is required. Pt has been accepted to [facility], and [facility] from [facility].
[2024-10-11] MEDS: FINASTERIDE 5 MG TABLET PO (10:22)
--- NOTE | 2024-10-11 12:10 | PC.SS ---
SS attempted to call PASRR to close assessment but was unsuccessful. SS left voicemail for PASRR. SS met with pt and provided him with verbal choices for SNF. [facility], [facility], and [facility] has accepted. Patient's choice is [facility]. SS spoke to Meliza from [facility] who states she does not have male beds available today (until tomorrow). Patient's 2nd choice is [facility]. SS spoke to Bita at [facility] who states they can accept pt. SS has provided pt with Community Resource List and other community resources for drug/alchol programs. PASRR assessment level 2 is pending.
[2024-10-11] MEDS: AMOXICILLIN/POT CLAV 875 TABLET 1 TAB PO (12:21)
[2024-10-11] MEDS: INSULIN LISPRO (AdmeLOG) 1 UNIT/0.01 ML UNIT SC (12:21)
--- NOTE | 2024-10-11 14:00 | ESDS_ITS ---
<Statement entered by Harika Denson MD - 10/12/24 07:53> Patient was seen and examined by me personally. I have reviewed the below documentation by the team resident and agree with its findings with any exceptions as below. Discharge plan was discussed with the attending, Dr. Chris. Harika Denson, PGY-2 Planned Discharge Date 10/11/24 DS: Providers Provider Date of admission: 10/09/24 03:03 Primary care physician: Physician No Primary/Family Admitting Provider: Laura Carroll MD Attending Provider on Admission: Jasiel Chris MD Consults: 10/09/24 11:41 Referral Physical Therapy Stat Comment: Physician Instructions: 10/10/24 04:28 Referral Wound Care Urgent Comment: 10/10/24 15:54 Referral Nutritional Services Routine Comment: Wounds 10/10/24 15:56 Referral Discharge Planning Routine Comment: Wound care on discharge Attending Provider on DC: Moses Carvajal MD Discharging Provider: Moses Carvajal MD DS: Diagnosis Problem List Completed Was Problem List Reviewed/Reconciled?: Yes Hospital Course Hospital Course Hospital course: 68-year-old male with past medical history of COPD, hypertension, hyper lipidemia, BPH, urothelial bladder carcinoma, ijo-fgxnwxk-wlpakutjt type 2 diabetes presented to the ED on 10/09 when he was found down in his house by a neighbor. In the ED, patient was tachycardic, hypoxic and satting 91% on 5 L nasal cannula. Laboratory findings included elevated white count, lactic acid, creatinine kinase, signs of acute kidney injury. Head CT and CTA were negative for any acute hemorrhage, mass effect, midline shift or stenosis. Patient was given IV fluids and admitted for rhabdomyolysis. CIWA protocol was also initiated as the patient has history of alcohol use disorder with an unknown last drink time. Throughout hospitalization stay, patient's mental status improved and he was back to his normal baseline. Patient's kidney function along with laboratory findings also improved. There was some suspicion of lower extremity edema, asymmetrical at which point Doppler ultrasound was ordered which did not show any signs of DVT. Patient also complained of right ear ache and upon otoscopic evaluation there is signs of otitis media noted. Patient does have significant ASCVD risk with elevated lipid panel, history of diabetes and apparently had recently stopped seeing his PCP. Patient was counseled on the importance of following up in and he will be discharged with the following strict instructions. Take Augmentin 875-125mg twice a day for 5 days for ear infection Please take albuterol inhaler for wheezing; take Trelegy inhaler as directed once a day for COPD Please take finasteride 5mg by mouth daily and tamsulosin 0.4mg by mouth daily for enlarged prostate Please take sertraline 50mg by mouth daily for depression Please take lisinopril 5mg by mouth daily for elevated high blood pressure Please take metformin extended release 500mg by mouth twice a day for type II diabetes Follow-up with Dr. Carvajal at the [facility] on Tuesday10/16/20[place] [address] If your symptoms worsen or if you develop new chest pain, shortness of breath, dizziness or loss of consiousness - please come back to the ED immediately. Deep tissue injury from sacrum to lower buttocks and hip to hip: cover with foam dressing daily. Side to side repositioning except meals Hospital Diagnosis: #Acute encephalopathy #THANG, improving #Rhabdomyolysis #Lactic acidosis, resolved #Lower extremity edema #Hypertension #Hyperlipidemia #Hij-fuiinhd-prftulqni diabetes mellitus type II #BPH #History of urothelial bladder carcinoma status post transurethral resection #COPD #Alcohol-use disorder Moses Carvajal, PGY-1 Status at Discharge Overall status at discharge: patient is progressing back to baseline Time Spent with Patient Time attestation: Total time spent providing and/or coordinating discharge services: 45 minutes Time spent: Greater than 30 minutes Exam Vital Signs Temp Pulse Resp BP Pulse Ox O2 Del Method O2 Flow Rate 98.0 F 85 18 151/87 H 99 Nasal Cannula 1 10/11/24 12:10/11/24 12:10/11/24 12:10/11/24 12:10/11/24 12:10/11/24 12:10/11/24 12:09 Narrative Exam Physical Exam: General: Awake, appears to be in mild distress, answering questions appropriately HEENT: Dry mucous membranes, PERRLA, poor dentition Cardiovascular: III/IV systolic ejection murmur heard upon right upper sternal border, radial pulses +2 bilat, RRR Pulmonary: CTA b/l no wheeze, rales, rhonchi noted GI: Mild tender on LUQ, otherwise no tenderness to light or deep palpitation, no guarding, rigidity, rebound tenderness or distension : Skelton catheter in Extremities:+1 pitting edema noted on L lower ext vs. nonpitting edema on R lower ext, dorsalis pedis pulses +2 bilaterally Neuro: AAOx3, no focal neurologic deficits noted Discharge Plan Plan Patient Disposition: Home w/HOME HEALTH Care Plan Goals: Take Augmentin 875-125mg twice a day for 5 days for ear infection Please take albuterol inhaler for wheezing; take Trelegy inhaler as directed once a day for COPD Please take finasteride 5mg by mouth daily and tamsulosin 0.4mg by mouth daily for enlarged prostate Please take sertraline 50mg by mouth daily for depression Please take lisinopril 5mg by mouth daily for elevated high blood pressure Please take metformin extended release 500mg by mouth twice a day for type II diabetes Follow-up with Dr. Carvajal at the [facility] on Tuesday10/16/2024 - [address] [place] [address] If your symptoms worsen or if you develop new chest pain, shortness of breath, dizziness or loss of consiousness - please come back to the ED immediately. Deep tissue injury from sacrum to lower buttocks and hip to hip: cover with foam dressing daily. Side to side repositioning except meals Prescriptions/Referrals Prescriptions/Med Rec: New albuterol sulfate 90 mcg/actuation HFA aerosol inhaler 1 inh inhalation QID PRN (Reason: shortness of breath or wheezing) Qty: 6.7 3RF Trelegy Ellipta 100-62.5-25 mcg blister with device 1 inh inhalation QDAY Qty: 60 3RF sertraline 50 mg tablet 50 mg PO QDAY 30 Days Qty: 30 0RF metformin 500 mg tablet extended release 24 hr 500 mg PO BID 30 Days Qty: 60 0RF lisinopril 5 mg tablet 5 mg PO QDAY 30 Days Qty: 30 0RF finasteride 5 mg Tablet 5 mg PO QDAY 30 Days Qty: 30 0RF tamsulosin 0.4 mg Capsule 0.4 mg PO QDAY 30 Days Qty: 30 0RF amoxicillin-pot clavulanate 875-125 mg tablet 1 tab PO BID 5 Days Qty: 10 0RF Discontinued finasteride [Proscar] 5 MG tablet 5 mg PO QDAY Qty: 0 tamsulosin [Flomax] 0.4 mg capsule 0.8 mg PO HS Qty: 0 Trelegy Ellipta 100-62.5-25 mcg Blister With Device 1 inh INHALATION QDAY sertraline 100 mg Tablet 200 mg PO QDAY albuterol sulfate [ProAir HFA] 90 mcg/actuation Hfa Aerosol Inhaler 1 puff inhalation DAILY PRN (Reason: Wheezing) metformin 500 mg tablet 500 mg PO BID loratadine 10 mg tablet 10 mg PO DAILY Patient Comments: TAKE 1 TABLET BY MOUTH ONCE DAILY NEEDED FOR ALLERGIES aripiprazole [Abilify] 5 mg Tablet 5 mg PO HS fenofibrate micronized 200 mg capsule 200 mg PO DAILY Patient Comments: TAKE 1 CAPSULE BY MOUTH ONCE DAILY FOR HIGH TRIGLYCERIDES hydroxyzine HCl 25 mg tablet 25 mg PO HS PRN (Reason: Anxiety) Patient Comments: TAKE 1 TABLET BY MOUTH NIGHTLY NEEDED FOR ANXIETY FOR INSOMNIA fluticasone propionate 50 mcg/actuation spray,suspension 1 spray INTRANASAL DAILY Patient Comments: USE 1 SPRAY(S) IN EACH NOSTRIL 1-2 TIMES PER DAY FOR PERSISTENT ALLERGIES glipizide 5 mg tablet 5 mg PO QAM Patient Comments: TAKE 1 TABLET BY MOUTH TWICE DAILY WITH MEALS FOR DIABETES Referrals: No Primary/Family,Physician [Primary Care Provider] - Patient/Caregiver Discharge Instructions Education Materials: Boosting Your Mental Health, Diabetes and Drinking Alcohol, Rhabdomyolysis, Counseling for Depression Print Language: Sami Stand Alone Forms: Sylvia Award Info., Patient Portal Info Letter Discharge Order Discharge Orders: Discharge (Routine); Ordered 10/11/24 Ordered By: Moses Carvajal Quality Discharge Quality Measures VTE prophylaxis Attestestation Attestation I reviewed labs, imaging, EKG, home medications and prior available records. Face to face evaluation was performed by me. I have personally examined the patient and discussed assessment and plan with the IM team. I reviewed the resident note and agree with the plan with exceptions as below. Acute encephalopathy Lactic acidosis THANG Rhabdomyolysis Leukocytosis Non-STEMI History of alcohol use COPD without exacerbation Encourage oral hydration Monitor kidney function: Creatinine is close to baseline CPK is downtrending Avoid nephrotoxins. Renally dosed medications Trend WBC: Downtrending Trend troponin: Peaked Prescribed Trelegy. Continue albuterol as needed Continue metformin Ordered PT evaluation: Recommended SNF however cannot place. Will go home with home health. Discussed with licensed master social worker Time spent is 40 minutes. More than 50% of the time was spent on patient education and coordination of care.
--- NOTE | 2024-10-11 14:15 | PC.CC ---
Per SS Reva, pt is declined by [employer] insurance for SNF placement but insurance is OK for HH. SS informed me that pt doesn't have PCP but pt will be followed by our resident at [facility] center under Dr. Duglas Scott.
[2024-10-11] MEDS: TAMSULOSIN HCL 0.4 MG CAPSULE PO (14:32)
--- NOTE | 2024-10-11 14:33 | PC.SS ---
Follow up note: SS was informed by Glenna from [facility], patient's health insurance pt has been denied for SNF. Pt is requiring home O2. SS has spoken to bedside nurse, Lois about pt requiring O2 testing for home O2. Per Glenna, they will approve Home Health Services for PT/OT, RN, and aide.
--- NOTE | 2024-10-11 14:36 | PC.NURSE ---
Pt sats 93% on 1L o2 via NC at rest. Removed oxygen desaturated to 87% while at rest. Upon exertion sat 855
--- NOTE | 2024-10-11 14:39 | PC.NURSE ---
Pt sats 93% on 1L o2 via NC at rest. Removed oxygen pt 87% on RA at rest. Upon exertion saturations dropped to 84%. Placed back on 1L via nasal cannula and oxygen improved to 92%.
--- NOTE | 2024-10-11 15:17 | PC.SS ---
? OXYGEN Pt is discharged in a chronic stable state and has been treated optimally and has other respiratory needs. ?Oxygen has been ordered due to COPD
--- NOTE | 2024-10-12 08:33 | PC.CC ---
Addendum entered by Abundio Mas RN 10/12/24 14:18: [facility] accepted the pt., [facility]. Pending start of care date. Original Note: pt has [employer] [facility] insurance. HH referral sent to [facility] on [address]. Awaiting responses. Pending start of care date.
== END 2024-10-11 17:07 | disposition home health service (06) | DRG 71 ==
LOC: SERX 22:41 → SERHOLD 10-09 04:23 → S2NX 10-09 20:02
PROVIDERS: Student in an Organized Health Care Education/Training Program; Admitting Provider Internal Medicine; Emergency Provider Emergency Medicine; Visit Provider Student in an Organized Health Care Education/Training Program
DX: G93.40 Encephalopathy, unspecified (principal); E87.20 Acidosis, unspecified; M62.82 Rhabdomyolysis; N17.9 Acute kidney failure, unspecified; F32.A Depression, unspecified; J44.9 Chronic obstructive pulmonary disease, unspecified; N40.0 Benign prostatic hyperplasia without lower urinary tract symptoms; I10 Essential (primary) hypertension; E11.9 Type 2 diabetes mellitus without complications; H66.90 Otitis media, unspecified, unspecified ear; F10.90 Alcohol use, unspecified, uncomplicated; D75.1 Secondary polycythemia; E78.5 Hyperlipidemia, unspecified; R60.0 Localized edema; R55 Syncope and collapse; Z79.84 Long term (current) use of oral hypoglycemic drugs; Z85.51 Personal history of malignant neoplasm of bladder; Z79.899 Other long term (current) drug therapy; Z88.5 Allergy status to narcotic agent
CPT/HCPCS: 36415; 36600; 70450; 70496; 70498; 71045; 71260; 73020; 74177; 80053; 80061; 80307; 80320; 81001; 82436; 82550; 82570; 82803; 83036; 83605; 83735; 83880; 84100; 84133; 84145; 84300; 84443; 84484; 85025; 85379; 85610; 85730; 87040; 87086; 87400; 87811; 93970; 94640; 97162; A4649; A9270; J0696; J1643; J1815; J7030; J7050; Q9967; G0480

== ENCOUNTER 2024-10-16 10:15 | Outpatient (AMB) | payer OTHER, SELFPAY ==
--- NOTE | 2024-10-16 10:47 | PD.RESCLINIC ---
Vital Signs 10/16/24 10:48 Weight 101.605 kg Weight Measurement Method Standing Scale BP 166/85 H Blood Pressure Source Automatic Cuff Blood Pressure Location Left Upper Arm Position Sitting Respiration 16 Pulse 97 Pulse Source Monitor Temp 98.2 F Temp Source Temporal Artery Scan Pulse Oximetry (%) 86 L Oxygen Delivery Method Room Air Allergies/Meds Allergies & Medications Allergies codeine Allergy (Severe, Verified 10/16/24 10:48) vomiting strawberry Allergy (Severe, Verified 10/16/24 10:48) Hives Bee Stings Allergy (Severe, Uncoded 10/16/24 10:48) ANAPHYLACTIC SHOCK Medication Reconciliation albuterol sulfate 90 mcg/actuation aerosol inhaler 1 inh inhalation QID PRN shortness of breath or wheezing #6.7 grams 10/11/24 [Rx Confirmed 10/16/24] finasteride 5 mg tablet 5 mg PO QDAY 1 month #30 tabs 10/11/24 [Rx Confirmed 10/16/24] fluticasone fur. 100 mcg-umeclid 62.5 mcg-vilant 25 mcg inhalat.powder (Trelegy Ellipta) 1 inh inhalation QDAY #60 ea 10/11/24 [Rx Confirmed 10/16/24] lisinopril 5 mg tablet 5 mg PO QDAY 1 month #30 tabs 10/11/24 [Rx Confirmed 10/16/24] metformin 500 mg tablet,extended release 24 hr 500 mg PO BID 1 month #60 tabs 10/11/24 [Rx Confirmed 10/16/24] sertraline 50 mg tablet 50 mg PO QDAY 1 month #30 tabs 10/11/24 [Rx Confirmed 10/16/24] tamsulosin 0.4 mg capsule 0.4 mg PO QDAY 1 month #30 caps 10/11/24 [Rx Confirmed 10/16/24] atorvastatin 40 mg tablet 40 mg PO QDAY 1 month #30 tabs 10/16/24 [Rx] foam bandage 7 X 7 (Biatain Adhesive Foam Dressing) #5 ea 10/16/24 [Rx] roflumilast 250 mcg tablet 250 mcg PO QDAY 4 weeks #28 tabs 10/16/24 [Rx] MA Intake Visit Data Collection New Patient or Established: Established Patient (seen at [facility] within 3 years) Seen by Clinical Staff ONLY (RN/MA): No Pain Present Currently: No Pain scale:: 0 Pain Scale Used: Regalado-Bruno/Numerical Scientific Director Required: No PCP or OBGYN visit in last 3 months: No Hx Now: No Do You Feel Safe at Home: Yes Authorities Contacted: N/A Smoking Status Smoking Status: Former smoker Tobacco Use: Cigarette (remote, quit 15-20 years ago) Immunization / Flu Flu Vaccine in the Last 12 Months: No Flu Vaccine Exclusion Criteria: No Exclusion Criteria Past Medical History Past Medical History NEUROLOGIC: Negative Neurological Disorders, Parkinson's Disease or Seizures CARDIAC: Positive Cardiac Disorders (htn, hyperlipidema), Cardiac Arrhythmia, Atrial Fibrillation (with cardioversion), Atherosclerotic Heart Disease, Hypercholesterolemia, Edema (lower legs), Deep Vein Thrombosis and Hypertension; Negative Myocardial Infarction, Congestive Heart Failure, Cellulitis or Hypotension RESPIRATORY: Positive Chronic Obstructive Pulmonary Disease (COPD) and Asthma (COPD); Negative Sleep Apnea GASTROINTESTINAL: Positive Gastrointestinal Disorders, Gastroesophageal Reflux Disease and Obesity; Negative Hepatitis GENITOURINARY: Positive Genitourinary Disorders, Kidney Stones, Neurogenic Bladder and Benign Prostatic Hyperplasia; Negative Renal Disease MUSCULOSKELETAL: Negative Fractures ENT: Negative Ear Infection ENDOCRINE: Positive Endocrine Disorders and Diabetes Mellitus Type 2; Negative Diabetes Mellitus Type 1 HEMATOLOGIC: Negative Blood Disorders, Anemia or Sickle Cell Disease PSYCHO/SOCIAL: Positive Depression and Anxiety OTHER HISTORY: Positive Anesthesia Reactions (nausea/vomiting), Chemotherapy (x 18 bladder instillation myto), Chicken Pox, Measles, Mumps and Cancer (BLADDER CANCER); Negative Hospitalization, Autoimmune Disease, Shingles, Falls, Blood Transfusions, Blood Transfusion Reaction, Radiation Therapy or MRSA Family History FAMILY HISTORY: Positive Family Cardiac Disorders, Family Cancer and Family Surgery; Negative Family Psychiatric Problems, Family Respiratory Disorders, Family Gastrointestinal Problems or Family Anesthesia Reaction Surgical History SURGICAL: Positive Tonsillectomy, Open Reduction Internal Fixation (left thumb tendon repair) and Vasectomy; Negative Cardiac Surgery, Pacemaker or Joint Replacement Social History SMOKING STATUS: Smoking status: Former smoker ALCOHOL: Alcohol Intake: Current ALCOHOL FREQUENCY: Alcohol Intake Frequency: A Few Times a Month HOUSING: Housing: mobile home LIVES WITH: Lives With: Adopted Family Patient Portal Questionaires Social History Living Situation History Housing: mobile home Tobacco History Smoking Status: Former smoker Alcohol History Alcohol Intake: Current Alcohol Intake Frequency: A Few Times a Month Substance Use History Substance Use: THC occasionally Domestic Abuse History Do You Feel Safe at Home: Yes Review of Systems Report any current symptoms Only answer those that you have currently: General Complaints other: Yes (Dizziness) Breathing & Lungs other: Yes (Shortness of breath) Genital or Urinary System (Male) decreased urination: Yes (BPH) Psychiatric depression: Yes Past Medical History Past Medical History Have you ever been diagnosed with any of the following: Neurological Problems Parkinson's Disease: No Seizures: No Cardiology Problems Myocardial Infarction: No Cardiac Arrhythmia: Yes Atrial Fibrillation: Yes (with cardioversion) Atherosclerotic Heart Disease: Yes Hypercholesterolemia: Yes Congestive Heart Failure: No Edema: Yes (lower legs) Cellulitis: No Deep Vein Thrombosis: Yes Hypertension: Yes Hypotension: No Respiratory Problems Chronic Obstructive Pulmonary Disease (COPD): Yes Asthma: Yes (COPD) Sleep Apnea: No Stomache/Intestinal Problems Hepatitis: No Gastroesophageal Reflux Disease: Yes Obesity: Yes Genital/Urinary Problems Renal Disease: No Kidney Stones: Yes Neurogenic Bladder: Yes Benign Prostatic Hyperplasia: Yes Musculoskeletal Problems Fractures: No Head,Eye,Nose,Throat Problems Chronic Ear Infections: No Endocrine Problems Diabetes Mellitus Type 1: No Diabetes Mellitus Type 2: Yes Blood Problems Anemia: No Sickle Cell Disease: No Psychologic Problems Depression: Yes Anxiety: Yes Other Problems Hospitalization: No Autoimmune Disease: No Shingles: No Falls: No Blood Transfusions: No Blood Transfusion Reaction: No Anesthesia Reactions: Yes (nausea/vomiting) Chemotherapy: Yes (x 18 bladder instillation myto) Radiation Therapy: No MRSA: No Chicken Pox: Yes Measles: Yes Mumps: Yes Cancer: Yes (BLADDER CANCER) Surgical History Pacemaker: No History of Present Illness HPI Narrative 68-year-old male with past medical history of COPD, hypertension, hyperlipidemia, BPH, urothelial bladder carcinoma, [id number] type 2 diabetes is presenting to the [facility] on 10/16 after he had an admission to the hospital on 10/09 with rhabdomyolysis after he was found down by neighbors. Patient presenting today with daughter who is bedside, she is currently staying out of town. Patient states that he feels generally unwell and has increased shortness of breath and dyspnea on exertion. Patient has been using albuterol once or twice a day along with his daily Trelegy but he still feels short of breath. Patient is mostly sitting and has poor ambulation at home but states that a friend is currently living with them and does encourage him to move around. Patient also has intermittent dizziness which occurs while he is ambulating; moreover, this occurs while he changes from a seated to a standing position. Patient also has some signs of depression as he notes that he knows the telltale signs that he is exhibiting them; moreover, poor sleep, interests and feeling down regarding passing of his friend recently. Patient counseled on avoiding drinking as this will only exacerbate his current conditions and could pose serious medical consequences due to his already established chronic conditions. Patient has also been having increased urinary frequency and states that very little urine passes when he urinates; moreover, explained to the patient that he has been off the finasteride and tamsulosin for some time and to give his body some time to adjust to restarting those medications. Patient's earache is still present but he is completing his antibiotic regimen at this time. Patient also has a elongated 5 cm sacral wound which is healing appropriately with a dry scab noticed. 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 Review of Systems Constitutional Constitutional: Reports other (Dizziness) Respiratory Respiratory: Reports other (Shortness of breath) Genitourinary Genitourinary: Reports oliguria (BPH) Psychiatric Psychiatric: Reports depression Objective/Exam Narrative Physical exam: Physical Exam: GENERAL: Awake, answering questions appropriately, depressed mood, appears stated age HEENT: NC/AT. Moist mucosa. PERRLA/EOMI. pierced lips breathing CARDIO: Heart RRR, no obvious murmurs, no JVD. PULM: No coughing but appears visibly short of breath in tripod position. Lungs CTA B/L. GI: Abdomen soft, NT/ND, +BS. SKIN/MSK/EXT: Medial sacral wound noted 5 cm with crusted green/yellow region. No discoloration/rashes/edema/amputations. +Pedal pulses present B/L. NEURO: Oriented x3, no focal neurologic deficits, Moves extremities x4. Assessment & Plan Diagnosis / Problem List (1) COPD (chronic obstructive pulmonary disease): Status: Acute Qualifiers: COPD type: emphysema Emphysema type: other Qualified Code(s): J43.8 - Other emphysema Assessment & Plan: Patient has known history of COPD on Trelegy and albuterol rescue inhaler Patient also has home oxygen which he uses intermittently On presentation today patient has visible shortness of breath with tripod positioning and pierced lips SpO2 noted at 86 today with ambulation but improves upon rest Plan: Continue home inhalers as prescribed Added Roflumilast 250 mcg p.o. per day The patient's symptoms do not improve with additional medication will consider referral to pulmonology for further workup (2) Type 2 diabetes mellitus: Status: Acute Qualifiers: Diabetes mellitus senior living insulin use: without senior living use Diabetes mellitus complication status: without complication Qualified Code(s): E11.9 - Type 2 diabetes mellitus without complications Assessment & Plan: Patient has known history of type 2 diabetes, last A1c of 7.1 Patient continues to take metformin ER 500 mg p.o. twice daily Patient is ASCVD risk score of 44% with hyperlipidemia, hypertension Shared decision making was made about restarting atorvastatin since the patient had rhabdomyolysis Patient agreed to start half dose/moderate intensity atorvastatin to lower risk of ASCVD Patient follows Dr. Castaneda, cardiology, outpatient (established) Plan: Ordered complete labs including CBC, CMP, lipid panel, A1c, vitamin D and will follow-up Continue metformin ER 500 mg p.o. daily Started patient on atorvastatin 40 mg and will follow-up with liver function tests Patient made aware to contact Dr. Castaneda's office to schedule appointment within the next 2 weeks (3) Sacral wound: Status: Acute Qualifiers: Encounter type: subsequent encounter Qualified Code(s): S31.000D - Unspecified open wound of lower back and pelvis without penetration into retroperitoneum, subsequent encounter Assessment & Plan: Patient has a sacral wound likely sustained secondary to poor mobilization and fall which she sustained prior to admission to the hospital Upon examination of the sacral wound, it appears to be well-healed with a crusted lesion roughly 5 cm elongated Plan: Reordered bandages for the patient as specified by wound care Patient counseled on frequent reorientation and ambulation (4) Depression: Status: Acute Qualifiers: Depression Type: major depressive disorder Major depression recurrence: recurrent Active/Remission status: currently active Major depression episode severity: moderate Qualified Code(s): F33.1 - Major depressive disorder, recurrent, moderate Assessment & Plan: Patient has depression as noted by past medical history of Zoloft use Patient was started on half dose of Zoloft upon discharge from the hospital, sertraline 50 mg p.o. daily Recent passing of friend likely exacerbating depression symptoms Patient has sleep disturbances, poor interest and on examination appears to be in low mood Plan: Psychiatry referral Continue home sertraline dose (5) Otitis media: Status: Acute Qualifiers: Otitis media type: other nonsuppurative Chronicity: acute Laterality: right Recurrence: non-recurrent Qualified Code(s): H65.191 - Other acute nonsuppurative otitis media, right ear Assessment & Plan: In the hospital, patient did have some earache and otoscopic evaluation showed otitis media Patient was started on Augmentin 875 mg for 5 days; moreover, he started taking the medications on Friday 10/13 Patient still has some persistent ear ache but no drainage and no fever/chills Plan: Complete antibiotic course If the patient continues to have ear headache has been told to contact the office Orders: Orders CBC Today Comprehensive Metabolic Panel 2 Months E11.9 - Type 2 diabetes mellitus without complications, I10 - Essential (primary) hypertension Lipid Panel 2 Months E11.9 - Type 2 diabetes mellitus without complications, E78.5 - Hyperlipidemia, unspecified, I10 - Essential (primary) hypertension Ambulatory Hemoglobin A1C Today E11.9 - Type 2 diabetes mellitus without complications, E78.5 - Hyperlipidemia, unspecified Vitamin D, 1,25-Dihydroxy* 2 Months E11.9 - Type 2 diabetes mellitus without complications, E78.5 - Hyperlipidemia, unspecified, I10 - Essential (primary) hypertension Referrals Psychiatry Cardiology Advanced Care Planning Advance care planning discussed with:: patient Office Procedures [facility] Level of Care Nursing/Assessment Patient Status: Established Patient Nursing Assessment/Reassessment: Medication Reconciliation, Update PMH in EMR and Vital Signs Coordination of Care: Complex Care and Chronic Disease 1-5, Consent,records obtained, informed consent, Education Simp Pt/Fam, Lab and Imaging orders and Staff clarify orders Established Patient Charge Established Patient Point Assignment: 100 Established Patient Point Charge: EP Level 3 (80-115)
[2024-10-16 10:48] VITALS: BP 166/85; PULSE 97; RESP 16; TEMP 36.8; O2SAT 86
== END 2024-10-16 11:03 | disposition home or self-care (01) ==
LOC: HODAHC 10:15
PROVIDERS: Supervising Provider Internal Medicine
DX: M62.82 Rhabdomyolysis (principal); J44.9 Chronic obstructive pulmonary disease, unspecified; I10 Essential (primary) hypertension; E78.5 Hyperlipidemia, unspecified; E11.9 Type 2 diabetes mellitus without complications; Z79.84 Long term (current) use of oral hypoglycemic drugs; S31.000D Unspecified open wound of lower back and pelvis without penetration into retroperitoneum, subsequent encounter; X58.XXXD Exposure to other specified factors, subsequent encounter; F33.9 Major depressive disorder, recurrent, unspecified; H65.191 Other acute nonsuppurative otitis media, right ear; R42 Dizziness and giddiness
CPT/HCPCS: 99213; G0463

== ENCOUNTER → 2024-11-16 | Outpatient (CLI) | payer OTHER, SELFPAY | END | disposition home or self-care (01) | LOC: SWHD 09:20 | PROVIDERS: PCP Family Medicine; Referring Provider Family Medicine; Visit Provider Physician Assistant | DX: E11.621 Type 2 diabetes mellitus with foot ulcer (principal); L89.321 Pressure ulcer of left buttock, stage 1; Z79.84 Long term (current) use of oral hypoglycemic drugs; I49.9 Cardiac arrhythmia, unspecified; I48.91 Unspecified atrial fibrillation; J44.9 Chronic obstructive pulmonary disease, unspecified; H66.90 Otitis media, unspecified, unspecified ear; Z87.891 Personal history of nicotine dependence | CPT/HCPCS: 99213; G0463 ==

== ENCOUNTER → 2024-11-21 | Outpatient (CLI) | payer OTHER, SELFPAY ==
[2024-11-21 10:35] LABS: Basophils # (Auto) 0.1 Thou/mm3 (0.0-0.2); Basophils % (Auto) 1 % (0-2.5); Eosinophils # (Auto) 0.2 Thou/mm3 (0.0-0.5); Eosinophils % (Auto) 2 % (0-10); Hematocrit 44.7 % (41.0-53.0); Hemoglobin 15.6 g/dL (13.5-16.0); Immature Granulocytes % (Auto) 1 % (0-0); Immature Granulocytes Auto 0.06 Thou/mm3 (0.00-0.00); Lymphocytes # (Auto) 1.9 Thou/mm3 (1.0-4.8); Lymphocytes % (Auto) 26 % (10-50); Mean Corpuscular HGB Conc 34.9 g/dl (31.0-37.0); Mean Corpuscular Hemoglobin 31.1 pg (25.0-35.0); Mean Corpuscular Volume 89 fL (80-100); Monocytes # (Auto) 0.7 Thou/mm3 (0.0-0.8); Monocytes % (Auto) 9 % (0-12); Neutrophils # (Auto) 4.6 Thou/mm3 (1.8-7.7); Neutrophils % (Auto) 62 % (37-80); Nucleated Red Blood Cell % 0 /100 WBC (0); Platelet Count 188 Thou/mm3 (140-440); RDW Standard Deviation 42.7 fL (35.1-43.9); Red Blood Count 5.02 Miln/mm3 (4.50-5.90); White Blood Count 7.5 Thou/mm3 (3.8-10.6)
[2024-11-21 10:45] LABS: Glucose Estimated Average 131 mg/dL (80-131); Hemoglobin A1C 6.2 % Hgb (4.8-6.0)
[2024-11-21 10:49] LABS: Alanine Aminotransferase 16 U/L (10-49); Albumin, Serum 4.3 gm/dL (3.4-4.8); Albumin/Globulin Ratio 1.8 (1.2-2.2); Alkaline Phosphatase 85 U/L (46-116); Anion Gap 7 (7-16); Aspartate Amino Transferase 18 U/L (0-34); BUN/Creatinine Ratio 17 Ratio (12-20); Bilirubin,Total 0.9 mg/dL (0.3-1.2); Blood Urea Nitrogen 15 mg/dL (9-23); Calcium 9.8 mg/dL (8.3-10.6); Calcium (Corrected) 9.8 mg/dL (8.5-10.1); Carbon Dioxide 28.3 mMol/L (20.0-31.0); Chloride 106 mMol/L (98-107); Cholesterol 108 mg/dL (132-200); Creatinine (Component) 0.9 mg/dL (0.6-1.3); Globulin 2.4 gm/dL (2.3-3.5); Glucose 117 mg/dL (74-106); HDL Cholesterol 36 mg/dL (40-60); LDL Cholesterol,Calculated 45 mg/dL (0-130); Osmolality,Calculated 283 (275-295); Potassium 5.1 mMol/L (3.4-5.1); Sodium 141 mMol/L (136-145); Thyroid Stimulating Hormone 1.03 uIU/mL (0.55-4.78); Total Protein 6.7 gm/dL (5.7-8.2); Triglycerides 134 mg/dL (30-150); eGFR > 60 See Note
[2024-11-21 13:01] LABS: Collection Type, Urine Clean Catch
[2024-11-21 13:37] LABS: Bilirubin,Urine Negative (Negative); Blood,Urine Negative (Negative); Clarity,Urine Clear (Clear/Hazy); Color,Urine Yellow (Lt Yel-Yel); Glucose, Urine Negative (Negative); Ketones,Urine Negative (Negative); Leukocyte Esterase,Urine Negative (Negative); Nitrite,Urine Negative (Negative); Protein,Urine 1+ (Neg - Trace); RBC,Urine 3 /hpf (0-3); Specific Gravity,Urine 1.028 (1.001-1.035); Squamous Epithelial Cell,Urine < 1 /hpf (0-5); Urobilinogen,Urine Negative mg/dL (0.0-1.0); WBC,Urine 1 /hpf (0-5)
[2024-11-21 13:50] LABS: Creatinine MALB Rnd Ur 148 mg/dL (30-125); Microalbumin Creat Ratio 166 mg/gCrea (<30); Microalbumin, Random Urine 246 mg/L (0-300)
== END | disposition home or self-care (01) ==
LOC: COPL 09:51
PROVIDERS: PCP Family Medicine; Referring Provider Family Medicine; Visit Provider Internal Medicine Cardiovascular Disease
DX: Z00.00 Encounter for general adult medical examination without abnormal findings (principal); E11.40 Type 2 diabetes mellitus with diabetic neuropathy, unspecified; E78.2 Mixed hyperlipidemia; I10 Essential (primary) hypertension
CPT/HCPCS: 36415; 80053; 80061; 81001; 82043; 82570; 83036; 84443; 85025

== ENCOUNTER → 2025-02-05 | Outpatient (BNVA) | payer OTHER, SELFPAY | END | disposition home or self-care (01) | PROVIDERS: PCP Family Medicine; Referring Provider Family Medicine; Visit Provider Urology | DX: N40.1 Benign prostatic hyperplasia with lower urinary tract symptoms (principal); N13.8 Other obstructive and reflux uropathy; I10 Essential (primary) hypertension; E78.00 Pure hypercholesterolemia, unspecified; E11.9 Type 2 diabetes mellitus without complications; Z86.718 Personal history of other venous thrombosis and embolism; I25.2 Old myocardial infarction; J44.9 Chronic obstructive pulmonary disease, unspecified; K21.9 Gastro-esophageal reflux disease without esophagitis; Z85.51 Personal history of malignant neoplasm of bladder | CPT/HCPCS: 76872; 99212; G0463 ==

== ENCOUNTER → 2025-02-07 | Outpatient (BNVA) | payer OTHER, SELFPAY | END | disposition home or self-care (01) | PROVIDERS: PCP Family Medicine; Referring Provider Family Medicine; Visit Provider Urology | DX: Z51.89 Encounter for other specified aftercare (principal) ==

== ENCOUNTER → 2025-03-05 | Outpatient (CLI) | payer OTHER, SELFPAY ==
--- NOTE | 2025-03-05 09:00 | XR_ITS ---
Examination: Bone densitometry Date and time of exam:March 05, 2025 1310 hours INDICATIONS: 69-year-old male with diagnosis age related osteoporosis, right rib fracture 2008, diabetic, bladder cancer history Technique: Lumbar spine and hip total bone mineralization values of an calculated. Peak reference and age match control results have been displayed. Findings: Lumbar spine total bone mineralization is1.138 gm/cm2. This is 0.4 standard deviations above peak reference. This is 1.3 standard deviations above age-matched controls. Hip total bone mineralization is 1.088 gm/cm2 This is 0.4 standard deviations above peak reference. This is 1 standard deviations above age-matched controls Impression: There is normal mineralization based on lumbar spine measurements. There is osteopenia based on hip measurements
== END | disposition home or self-care (01) ==
LOC: CDIM 12:39
PROVIDERS: Referring Provider Family Medicine; Visit Provider Family Medicine
DX: M85.88 Other specified disorders of bone density and structure, other site (principal)
CPT/HCPCS: 77080

== ENCOUNTER → 2025-04-26 | Outpatient (CLI) | payer OTHER, SELFPAY ==
[2025-04-26 14:04] LABS: Glucose Estimated Average 120 mg/dL (80-131); Hemoglobin A1C 5.8 % Hgb (4.8-6.0)
[2025-04-26 14:06] LABS: Alanine Aminotransferase 33 U/L (10-49); Albumin, Serum 4.4 gm/dL (3.4-4.8); Albumin/Globulin Ratio 2.2 (1.2-2.2); Alkaline Phosphatase 75 U/L (46-116); Anion Gap 9 (7-16); Aspartate Amino Transferase 26 U/L (0-34); BUN/Creatinine Ratio 11 Ratio (12-20); Bilirubin,Total 1.1 mg/dL (0.3-1.2); Blood Urea Nitrogen 10 mg/dL (9-23); Calcium 10.1 mg/dL (8.3-10.6); Calcium (Corrected) 10.1 mg/dL (8.5-10.1); Carbon Dioxide 29.8 mMol/L (20.0-31.0); Cardiac Risk Estimate 2.7 RATIO (4.0-6.7); Chloride 101 mMol/L (98-107); Cholesterol 109 mg/dL (132-200); Creatinine (Component) 0.9 mg/dL (0.6-1.3); Globulin 2.0 gm/dL (2.3-3.5); Glucose 90 mg/dL (74-106); HDL Cholesterol 41 mg/dL (40-60); LDL Cholesterol,Calculated 46 mg/dL (0-130); Osmolality,Calculated 278 (275-295); Potassium 4.5 mMol/L (3.4-5.1); Sodium 140 mMol/L (136-145); Total Protein 6.4 gm/dL (5.7-8.2); Triglycerides 108 mg/dL (30-150); eGFR > 60 See Note
== END | disposition home or self-care (01) ==
LOC: COPL 13:17
PROVIDERS: PCP Family Medicine; Referring Provider Family Medicine; Visit Provider Family Medicine
DX: E11.69 Type 2 diabetes mellitus with other specified complication (principal); E78.2 Mixed hyperlipidemia; I10 Essential (primary) hypertension
CPT/HCPCS: 36415; 80053; 80061; 83036

== ENCOUNTER → 2025-06-07 | Outpatient (BNVA) | payer OTHER, SELFPAY | END | disposition home or self-care (01) | PROVIDERS: PCP Family Medicine; Referring Provider Family Medicine; Visit Provider Physician Assistant | DX: N40.1 Benign prostatic hyperplasia with lower urinary tract symptoms (principal); Z85.51 Personal history of malignant neoplasm of bladder; I10 Essential (primary) hypertension | CPT/HCPCS: Q3014 ==

== ENCOUNTER → 2025-07-11 | Outpatient (CLI) | payer OTHER, SELFPAY ==
[2025-07-11 14:43] LABS: Prostate Specific Antigen 1.11 ng/mL (0-4.00)
[2025-07-11 15:35] LABS: Collection Type, Urine Clean Catch
[2025-07-11 16:06] LABS: Bilirubin,Urine Negative (Negative); Blood,Urine Negative (Negative); Clarity,Urine Clear (Clear/Hazy); Color,Urine Yellow (Lt Yel-Yel); Glucose, Urine Negative (Negative); Ketones,Urine Negative (Negative); Leukocyte Esterase,Urine Negative (Negative); Nitrite,Urine Negative (Negative); PH,Urine 6.0 (5.0-7.0); Protein,Urine 1+ (Neg - Trace); RBC,Urine 1 /hpf (0-3); Specific Gravity,Urine 1.026 (1.001-1.035); Squamous Epithelial Cell,Urine 1 /hpf (0-5); Urobilinogen,Urine Negative mg/dL (0.0-1.0); WBC,Urine 1 /hpf (0-5)
== END | disposition home or self-care (01) ==
LOC: COPL 13:33
PROVIDERS: PCP Family Medicine; Referring Provider Physician Assistant; Visit Provider Physician Assistant
DX: N40.1 Benign prostatic hyperplasia with lower urinary tract symptoms (principal)
CPT/HCPCS: 36415; 81001; 84153